=== PATIENT | female | born 1970 | race Asian ===

== ENCOUNTER 2018-11-24 16:10 | Inpatient (IN) | payer MEDICAID, OTHER ==
[~2018-11-24] VITALS: Ht 149.9 cm; Wt 100.7 kg
[~2018-11-24 16:10] MED LIST: ARIP10TA8 PO; HYDR25TA PO; LEVO75TA4 PO; LISI-662 PO; METO25 PO; OXCA600T19 PO; PANT40TA25 PO; POTA10TA14 PO; SIMV-260 PO; TRAZ-186 PO
[2018-11-24] MEDS ORDERED: BUPR-47 PO (17:54)
[2018-11-24] MEDS ORDERED: DULO60CA44 PO (17:54)
[2018-11-24] MEDS ORDERED: CARI4.5C PO (17:54)
[2018-11-24 18:04] LABS: BASOPHILS % (AUTO) 0.5 % (0.0-2.0); HEMATOCRIT 39.5 % (36-46); HEMOGLOBIN 12.6 g/dL (12.0-16.0); LYMPHOCYTES # (AUTO) 2.1 K/uL (1.0-4.8); LYMPHOCYTES % (AUTO) 22.3 % (22.0-44.0); MEAN CORPUSCULAR HEMOGLOBIN 29.1 pg (26.0-34.0); MEAN CORPUSCULAR VOLUME 91 fL (80-100); MONOCYTES # (AUTO) 0.7 K/uL (0.1-1.0); MONOCYTES % (AUTO) 7.8 % (2.0-9.0); NEUTROPHILS # (AUTO) 6.3 K/uL (1.8-7.7); NEUTROPHILS % (AUTO) 66.4 % (40.0-70.0); PLATELET COUNT (AUTO) 189 K/uL (150-450); RED BLOOD CELL COUNT(AUTO) 4.35 MIL/uL (4.00-5.20); RED CELL DISTRIBUTION WIDTH 13.8 % (11.5-14.5)
[2018-11-24 18:16] LABS: ANION GAP 6 mmol/L (8-16); CALCIUM, TOTAL 8.9 mg/dL (8.8-10.5); CARBON DIOXIDE 31 mmol/L (22-29); CHLORIDE 105 mmol/L (98-107); CREATININE 0.78 mg/dL (0.60-1.30); GLOMERULAR FILTR. RATE CALC > 60 mL/min (>60); GLUCOSE,RANDOM 74 mg/dL (70-110); POTASSIUM 3.7 mmol/L (3.5-5.1); SODIUM SERUM 142 mmol/L (136-145); UREA NITROGEN, BLOOD 20 mg/dL (7-18)
[2018-11-24 18:21] LABS: ALANINE AMINOTRANSFERASE 24 U/L (12-78); ALBUMIN 3.8 g/dL (3.4-5.0); ALKALINE PHOSPHATASE 102 U/L (46-116); ASPARTATE AMINOTRANSFERASE 18 U/L (15-37); BILIRUBIN,TOTAL 0.3 mg/dL (0.1-1.0); TOTAL PROTEIN, SERUM 8.7 g/dL (6.4-8.2)
[2018-11-24 19:11] LABS: FREE T4 (FREE THYROXINE) 0.85 ng/dL (0.76-1.46); THYROID STIMULATING HORMONE 5.17 uIU/mL (0.36-3.74)
[2018-11-24 19:17] LABS: AMPHET/METH SCREEN,URINE NEGATIVE (NEGATIVE); BARBITURATE SCREEN, URINE NEGATIVE (NEGATIVE); BENZODIAZEPINES SCREEN,URINE NEGATIVE (NEGATIVE); CANNABINOID SCREEN,URINE NEGATIVE (NEGATIVE); COCAINE SCREEN,URINE NEGATIVE (NEGATIVE); METHADONE SCREEN, URINE NEGATIVE (NEGATIVE); OPIATE SCREEN,URINE NEGATIVE (NEGATIVE)
[2018-11-24 19:23] LABS: PHENCYCLIDINE SCREEN,URINE NEGATIVE (NEGATIVE)
[2018-11-24 22:00] VITALS: BP 142/92
[2018-11-24] MEDS ORDERED: LORazepam 2 MG TABLET PO PRN (23:45)
[2018-11-24] MEDS ORDERED: ZOLPIDEM TARTRATE 10 MG TABLET PO PRN (23:45)
[2018-11-24] MEDS ORDERED: HALOPERIDOL 5 MG TABLET PO PRN (23:45)
[2018-11-25 02:45] VITALS: BP 125/89
[2018-11-25] MEDS: LEVOTHYROXINE SODIUM 75 MCG TABLET PO SCH (06:44)
[2018-11-25] MEDS: METOPROLOL TARTRATE 25 MG TABLET PO SCH (09:14)
[2018-11-25] MEDS ORDERED: NICOTINE 14 MG/24 HOUR PATCH TD PRN (09:30)
[2018-11-25] MEDS ORDERED: ACETAMINOPHEN 325 MG TABLET PO PRN (09:30)
[2018-11-25] MEDS ORDERED: DOCUSATE SODIUM 100 MG CAPSULE PO PRN (09:30)
[2018-11-25] MEDS ORDERED: CloNIDine HCL 0.1 MG TABLET PO PRN (09:30)
[2018-11-25] MEDS ORDERED: ONDANSETRON HCL 4 MG TABLET PO PRN (09:30)
[2018-11-25] MEDS ORDERED: ALBUTEROL SULFATE HFA 90 MCG/PUFF 8 GM INHALER IH PRN (09:30)
[2018-11-25] MEDS ORDERED: GuaiFENesin/D-METHORPHAN [SUGAR-FREE] 200-20MG/10 ML SYRUP UDCUP PO PRN (09:30)
[2018-11-25] MEDS ORDERED: LOPERAMIDE HCL 2 MG CAPSULE PO PRN (09:30)
[2018-11-25] MEDS ORDERED: PETROLATUM,WHITE 28 GM JELLY TP PRN (09:30)
[2018-11-25] MEDS ORDERED: MAG HYDROX/AL HYDROX/SIMETH ES 30 ML SUSPENSION UDCUP PO PRN (09:30)
[2018-11-25] MEDS ORDERED: MAGNESIUM HYDROXIDE SUSPENSION 30 ML UDCUP PO PRN (09:30)
[2018-11-25 10:00] VITALS: BP 139/66
[2018-11-25 10:29] VITALS: BP 136/72
[2018-11-25] MEDS: IBUPROFEN 400 MG TABLET PO PRN (10:29)
[2018-11-25 11:29] VITALS: BP 132/74
[2018-11-25] MEDS: DULoxetine HCL 60 MG CAPSULE PO SCH (16:10)
[2018-11-25 16:12] VITALS: BP 125/52
[2018-11-25] MEDS: SIMVASTATIN 20 MG TABLET PO SCH (20:38)
[2018-11-25] MEDS ORDERED: QUEtiapine FUMARATE 50 MG ER TABLET PO SCH (21:00)
[2018-11-26] MEDS: LEVOTHYROXINE SODIUM 75 MCG TABLET PO SCH (06:54)
[2018-11-26 08:13] LABS: CHOL/HDL RATIO 4.5 (3.9-5.7)
[2018-11-26 09:06] VITALS: BP 138/91
[2018-11-26] MEDS: DULoxetine HCL 60 MG CAPSULE PO SCH ×2 (09:18→17:09)
[2018-11-26] MEDS: METOPROLOL TARTRATE 25 MG TABLET PO SCH (09:19)
[2018-11-26] MEDS: BuPROPion HCL XL 150 MG ER TABLET PO SCH (09:26)
[2018-11-26 19:15] VITALS: BP 140/88
[2018-11-26] MEDS: SIMVASTATIN 20 MG TABLET PO SCH (20:21)
[2018-11-26] MEDS ORDERED: QUEtiapine FUMARATE 50 MG ER TABLET PO SCH (21:00)
[2018-11-27] MEDS: LEVOTHYROXINE SODIUM 75 MCG TABLET PO SCH (06:51)
[2018-11-27 09:41] VITALS: BP 137/82
[2018-11-27] MEDS: METOPROLOL TARTRATE 25 MG TABLET PO SCH (09:47)
[2018-11-27] MEDS: BuPROPion HCL XL 150 MG ER TABLET PO SCH (09:47)
[2018-11-27] MEDS: DULoxetine HCL 60 MG CAPSULE PO SCH ×2 (09:48→16:46)
[2018-11-27 12:31] VITALS: BP 138/85
[2018-11-27] MEDS: IBUPROFEN 400 MG TABLET PO PRN (12:31)
[2018-11-27 17:20] VITALS: BP 135/81
[2018-11-27] MEDS: QUEtiapine FUMARATE 300 MG ER TABLET PO SCH (21:03)
[2018-11-27] MEDS: SIMVASTATIN 20 MG TABLET PO SCH (21:03)
[2018-11-28] MEDS: LEVOTHYROXINE SODIUM 75 MCG TABLET PO SCH (06:53)
[2018-11-28] MEDS: DULoxetine HCL 60 MG CAPSULE PO SCH ×2 (10:07→16:58)
[2018-11-28] MEDS: BuPROPion HCL XL 150 MG ER TABLET PO SCH (10:07)
[2018-11-28] MEDS: METOPROLOL TARTRATE 25 MG TABLET PO SCH (10:07)
[2018-11-28 12:32] VITALS: BP 123/79
[2018-11-28 17:08] VITALS: BP 126/69
[2018-11-28] MEDS: SIMVASTATIN 20 MG TABLET PO SCH (20:36)
[2018-11-28] MEDS: QUEtiapine FUMARATE 300 MG ER TABLET PO SCH (20:36)
[2018-11-29] MEDS: LEVOTHYROXINE SODIUM 75 MCG TABLET PO SCH (06:49)
[2018-11-29] MEDS: METOPROLOL TARTRATE 25 MG TABLET PO SCH (07:45)
[2018-11-29] MEDS: DULoxetine HCL 60 MG CAPSULE PO SCH (07:45)
[2018-11-29] MEDS: BuPROPion HCL XL 150 MG ER TABLET PO SCH (07:45)
[2018-11-29] MEDS: IBUPROFEN 400 MG TABLET PO PRN (07:46)
[2018-11-29 08:46] VITALS: BP 131/90
[2018-11-29 09:11] VITALS: BP 131/90
[2018-11-29] MEDS ORDERED: QUET300T5 PO (10:26)
== END 2018-11-29 14:50 | disposition home or self-care (01) | DRG 751 ==
LOC: EMS 16:12 → 3EI 21:30
PROVIDERS: ADMIT Psychiatry & Neurology Psychiatry; ATTEND Psychiatry & Neurology Psychiatry
DX: F33.3 Major depressive disorder, recurrent, severe with psychotic symptoms (principal); R45.851 Suicidal ideations; Z68.41 Body mass index [BMI] 40.0-44.9, adult; E03.9 Hypothyroidism, unspecified; J45.909 Unspecified asthma, uncomplicated; E66.9 Obesity, unspecified; F60.3 Borderline personality disorder; E78.5 Hyperlipidemia, unspecified; M19.90 Unspecified osteoarthritis, unspecified site; F41.9 Anxiety disorder, unspecified; I10 Essential (primary) hypertension; Z88.8 Allergy status to other drugs, medicaments and biological substances; Z91.5 Personal history of self-harm
CPT/HCPCS: 84439; 84443; 94660; G0480

== ENCOUNTER 2019-06-20 09:28 | Inpatient (IN) | payer MEDICAID ==
[~2019-06-20] VITALS: Ht 149.9 cm; Wt 105.7 kg
[~2019-06-20 09:28] MED LIST changes: -ARIP10TA8 PO; +BUPR-47 PO; +DULO60CA44 PO; -HYDR25TA PO; -LISI-662 PO; -OXCA600T19 PO; -PANT40TA25 PO; -POTA10TA14 PO; +QUET300T5 PO; -TRAZ-186 PO
[2019-06-20] MEDS ORDERED: HALOPERIDOL 5 MG TABLET PO PRN (12:00)
[2019-06-20] MEDS ORDERED: TUBERCULIN, PURIFIED PROTEIN DERIVATIVE 5 TU/0.1 ML SYRINGE ID ONE (12:00)
[2019-06-20 12:31] VITALS: BP 112/64
[2019-06-20 13:00] VITALS: BP 120/72
[2019-06-20 16:27] VITALS: BP 126/77
[2019-06-20] MEDS: ASENAPINE 10 MG SUBLINGUAL TABLET SL SCH (16:29)
[2019-06-20] MEDS: SIMVASTATIN 20 MG TABLET PO SCH (20:15)
[2019-06-20] MEDS: ZOLPIDEM TARTRATE 10 MG TABLET PO PRN (21:01)
[2019-06-21 05:33] VITALS: BP 139/90
[2019-06-21] MEDS: LEVOTHYROXINE SODIUM 75 MCG TABLET PO SCH (06:31)
[2019-06-21 07:57] LABS: BASOPHILS % (AUTO) 0.5 % (0.0-2.0); EOSINOPHILS % (AUTO) 0.6 % (1.0-6.0); HEMATOCRIT 37.9 % (36-46); LYMPHOCYTES # (AUTO) 1.4 K/uL (1.0-4.8); LYMPHOCYTES % (AUTO) 16.3 % (22.0-44.0); MEAN CORPUSCULAR HEMOGLOBIN 26.9 pg (26.0-34.0); MEAN CORPUSCULAR HGB CONC 31.6 G/dL (31.0-37.0); MEAN CORPUSCULAR VOLUME 85 fL (80-100); MONOCYTES # (AUTO) 0.6 K/uL (0.1-1.0); MONOCYTES % (AUTO) 6.7 % (2.0-9.0); NEUTROPHILS # (AUTO) 6.5 K/uL (1.8-7.7); NEUTROPHILS % (AUTO) 75.9 % (40.0-70.0); PLATELET COUNT (AUTO) 202 K/uL (150-450); RED BLOOD CELL COUNT(AUTO) 4.44 MIL/uL (4.00-5.20); RED CELL DISTRIBUTION WIDTH 14.7 % (11.5-14.5)
[2019-06-21 08:05] LABS: ALANINE AMINOTRANSFERASE 34 U/L (12-78); ALBUMIN 3.6 g/dL (3.4-5.0); ALKALINE PHOSPHATASE 79 U/L (46-116); ANION GAP 5 mmol/L (8-16); ASPARTATE AMINOTRANSFERASE 23 U/L (15-37); BILIRUBIN,TOTAL 0.3 mg/dL (0.1-1.0); CALCIUM, TOTAL 9.2 mg/dL (8.8-10.5); CARBON DIOXIDE 35 mmol/L (22-29); CHLORIDE 101 mmol/L (98-107); CREATININE 0.91 mg/dL (0.60-1.30); GLOMERULAR FILTR. RATE CALC > 60 mL/min (>60); GLUCOSE,RANDOM 106 mg/dL (70-110); SODIUM SERUM 141 mmol/L (136-145); TOTAL PROTEIN, SERUM 8.4 g/dL (6.4-8.2); UREA NITROGEN, BLOOD 22 mg/dL (7-18)
[2019-06-21 08:14] LABS: POTASSIUM 2.8 mmol/L (3.5-5.1)
[2019-06-21] MEDS: BuPROPion HCL XL 150 MG ER TABLET PO SCH (08:21)
[2019-06-21] MEDS: ASENAPINE 10 MG SUBLINGUAL TABLET SL SCH ×2 (08:21→16:10)
[2019-06-21] MEDS: METOPROLOL TARTRATE 25 MG TABLET PO SCH (08:21)
[2019-06-21] MEDS ORDERED: POTASSIUM CHLORIDE 20 MEQ ER TABLET PO ONE (08:30)
[2019-06-21 10:37] VITALS: BP 149/84
[2019-06-21] MEDS ORDERED: GuaiFENesin/D-METHORPHAN [SUGAR-FREE] 200-20MG/10 ML SYRUP UDCUP PO PRN (11:30)
[2019-06-21] MEDS ORDERED: NICOTINE 14 MG/24 HOUR PATCH TD PRN (11:30)
[2019-06-21] MEDS ORDERED: CloNIDine HCL 0.1 MG TABLET PO PRN (11:30)
[2019-06-21] MEDS ORDERED: PETROLATUM,WHITE 28 GM JELLY TP PRN (11:30)
[2019-06-21] MEDS ORDERED: ALBUTEROL SULFATE HFA 90 MCG/PUFF 8 GM INHALER IH PRN (11:30)
[2019-06-21] MEDS ORDERED: DOCUSATE SODIUM 100 MG CAPSULE PO PRN (11:30)
[2019-06-21] MEDS ORDERED: LOPERAMIDE HCL 2 MG CAPSULE PO PRN (11:30)
[2019-06-21] MEDS ORDERED: ONDANSETRON HCL 4 MG TABLET PO PRN (11:30)
[2019-06-21] MEDS ORDERED: IBUPROFEN 400 MG TABLET PO PRN (11:30)
[2019-06-21] MEDS ORDERED: MAGNESIUM HYDROXIDE SUSPENSION 30 ML UDCUP PO PRN (11:30)
[2019-06-21] MEDS ORDERED: ACETAMINOPHEN 325 MG TABLET PO PRN (11:30)
[2019-06-21] MEDS ORDERED: MAG HYDROX/AL HYDROX/SIMETH ES 30 ML SUSPENSION UDCUP PO PRN (11:30)
[2019-06-21 16:15] VITALS: BP 155/81
[2019-06-21] MEDS: TraZODone HCL 50 MG TABLET PO SCH (20:10)
[2019-06-21] MEDS: SIMVASTATIN 20 MG TABLET PO SCH (20:10)
[2019-06-21] MEDS: ZOLPIDEM TARTRATE 10 MG TABLET PO PRN (21:56)
[2019-06-21] MEDS: LORazepam 2 MG TABLET PO PRN (23:45)
[2019-06-22 00:01] VITALS: BP 139/63
[2019-06-22] MEDS: LEVOTHYROXINE SODIUM 75 MCG TABLET PO SCH (06:57)
[2019-06-22 08:16] VITALS: BP 119/44
[2019-06-22 08:25] LABS: MAGNESIUM 2.5 mg/dL (1.80-2.40); POTASSIUM 3.9 mmol/L (3.5-5.1)
[2019-06-22] MEDS: BuPROPion HCL XL 150 MG ER TABLET PO SCH (08:28)
[2019-06-22] MEDS: METOPROLOL TARTRATE 25 MG TABLET PO SCH (08:28)
[2019-06-22] MEDS: ASENAPINE 10 MG SUBLINGUAL TABLET SL SCH ×2 (08:28→16:26)
[2019-06-22] MEDS ORDERED: POTASSIUM CHLORIDE 20 MEQ ER TABLET PO ONE (13:45)
[2019-06-22 16:06] VITALS: BP 147/81
[2019-06-22] MEDS: LORazepam 2 MG TABLET PO PRN (19:03)
[2019-06-22] MEDS: SIMVASTATIN 20 MG TABLET PO SCH (20:17)
[2019-06-22] MEDS: TraZODone HCL 50 MG TABLET PO SCH (20:17)
[2019-06-23 01:38] VITALS: BP 135/77
[2019-06-23] MEDS: LEVOTHYROXINE SODIUM 75 MCG TABLET PO SCH (06:26)
[2019-06-23 08:05] LABS: MAGNESIUM 2.3 mg/dL (1.80-2.40); POTASSIUM 3.9 mmol/L (3.5-5.1)
[2019-06-23] MEDS: METOPROLOL TARTRATE 25 MG TABLET PO SCH (08:51)
[2019-06-23] MEDS: BuPROPion HCL XL 150 MG ER TABLET PO SCH (08:51)
[2019-06-23] MEDS: ASENAPINE 10 MG SUBLINGUAL TABLET SL SCH (08:52)
[2019-06-23 09:29] VITALS: BP 152/84
[2019-06-23] MEDS ORDERED: TRAZ-252 PO (11:42)
[2019-06-23] MEDS ORDERED: ASEN10TA8 SL (11:42)
[2019-06-23] MEDS ORDERED: BUPR-47 PO (11:42)
== END 2019-06-23 15:00 | disposition home or self-care (01) | DRG 753 ==
LOC: B2S 10:20
PROVIDERS: ADMIT Psychiatry & Neurology Child & Adolescent Psychiatry
DX: F31.4 Bipolar disorder, current episode depressed, severe, without psychotic features (principal); R45.851 Suicidal ideations; G40.909 Epilepsy, unspecified, not intractable, without status epilepticus; E03.9 Hypothyroidism, unspecified; E78.5 Hyperlipidemia, unspecified; E87.6 Hypokalemia; F10.10 Alcohol abuse, uncomplicated; R00.0 Tachycardia, unspecified; I10 Essential (primary) hypertension; J45.909 Unspecified asthma, uncomplicated; Z79.899 Other long term (current) drug therapy; Z81.8 Family history of other mental and behavioral disorders; Z91.5 Personal history of self-harm; Z88.8 Allergy status to other drugs, medicaments and biological substances
CPT/HCPCS: 83735; 84132

== ENCOUNTER 2019-07-04 09:10 | Inpatient (IN) | payer MEDICAID ==
[~2019-07-04] VITALS: Ht 149.9 cm; Wt 99.0 kg
[~2019-07-04 09:10] MED LIST changes: +ASEN10TA8 SL; -DULO60CA44 PO; -QUET300T5 PO; +TRAZ-252 PO
[2019-07-04 13:43] VITALS: BP 152/93
[2019-07-04] MEDS ORDERED: ZOLPIDEM TARTRATE 10 MG TABLET PO PRN (16:00)
[2019-07-04] MEDS ORDERED: HALOPERIDOL 5 MG TABLET PO PRN (16:00)
[2019-07-04] MEDS ORDERED: LORazepam 2 MG TABLET PO PRN (16:00)
[2019-07-04 17:07] VITALS: BP 147/79
[2019-07-04] MEDS ORDERED: SIMVASTATIN 20 MG TABLET PO SCH (21:00)
[2019-07-04] MEDS ORDERED: TraZODone HCL 50 MG TABLET PO SCH (21:00)
[2019-07-04] MEDS: ASENAPINE 10 MG SUBLINGUAL TABLET SL SCH (21:07)
[2019-07-05] MEDS ORDERED: LEVOTHYROXINE SODIUM 75 MCG TABLET PO SCH (06:30)
[2019-07-05 08:00] VITALS: BP 153/97
[2019-07-05] MEDS ORDERED: ACETAMINOPHEN 650 MG RECTAL SUPPOSITORY PR PRN (08:00)
[2019-07-05] MEDS ORDERED: LOPERAMIDE HCL 2 MG CAPSULE PO PRN (08:30)
[2019-07-05] MEDS ORDERED: MAG HYDROX/AL HYDROX/SIMETH ES 30 ML SUSPENSION UDCUP PO PRN (08:30)
[2019-07-05] MEDS ORDERED: ONDANSETRON HCL 4 MG TABLET PO PRN (08:30)
[2019-07-05] MEDS ORDERED: MAGNESIUM HYDROXIDE SUSPENSION 30 ML UDCUP PO PRN (08:30)
[2019-07-05] MEDS ORDERED: CloNIDine HCL 0.1 MG TABLET PO PRN (08:30)
[2019-07-05] MEDS ORDERED: ALBUTEROL SULFATE HFA 90 MCG/PUFF 8 GM INHALER IH PRN (08:30)
[2019-07-05] MEDS ORDERED: GuaiFENesin/D-METHORPHAN [SUGAR-FREE] 200-20MG/10 ML SYRUP UDCUP PO PRN (08:30)
[2019-07-05] MEDS ORDERED: NICOTINE 14 MG/24 HOUR PATCH TD PRN (08:30)
[2019-07-05] MEDS ORDERED: IBUPROFEN 400 MG TABLET PO PRN (08:30)
[2019-07-05] MEDS ORDERED: ACETAMINOPHEN 325 MG TABLET PO PRN ×2 (08:30)
[2019-07-05] MEDS ORDERED: PETROLATUM,WHITE 28 GM JELLY TP PRN (08:30)
[2019-07-05] MEDS ORDERED: DOCUSATE SODIUM 100 MG CAPSULE PO PRN (08:30)
[2019-07-05] MEDS: ASENAPINE 10 MG SUBLINGUAL TABLET SL SCH (08:54)
[2019-07-05] MEDS ORDERED: METOPROLOL TARTRATE 25 MG TABLET PO SCH (09:00)
[2019-07-05] MEDS ORDERED: BuPROPion HCL XL 150 MG ER TABLET PO SCH ×2 (09:00→09:15)
[2019-07-05] MEDS ORDERED: ASENAPINE 10 MG SUBLINGUAL TABLET SL SCH (09:15)
[2019-07-05 11:15] LABS: BASOPHILS % (AUTO) 0.4 % (0.0-2.0); EOSINOPHILS % (AUTO) 0.1 % (1.0-6.0); HEMATOCRIT 42.2 % (36-46); HEMOGLOBIN 13.1 g/dL (12.0-16.0); LYMPHOCYTES # (AUTO) 1.2 K/uL (1.0-4.8); LYMPHOCYTES % (AUTO) 11.9 % (22.0-44.0); MEAN CORPUSCULAR HEMOGLOBIN 26.6 pg (26.0-34.0); MEAN CORPUSCULAR HGB CONC 31.1 G/dL (31.0-37.0); MEAN CORPUSCULAR VOLUME 85 fL (80-100); MONOCYTES # (AUTO) 0.7 K/uL (0.1-1.0); NEUTROPHILS # (AUTO) 8.3 K/uL (1.8-7.7); NEUTROPHILS % (AUTO) 80.6 % (40.0-70.0); PLATELET COUNT (AUTO) 246 K/uL (150-450); RED BLOOD CELL COUNT(AUTO) 4.94 MIL/uL (4.00-5.20); RED CELL DISTRIBUTION WIDTH 15.7 % (11.5-14.5)
[2019-07-05 11:34] LABS: ANION GAP 8 mmol/L (8-16); CALCIUM, TOTAL 9.6 mg/dL (8.8-10.5); CARBON DIOXIDE 33 mmol/L (22-29); CHLORIDE 101 mmol/L (98-107); CREATININE 1.09 mg/dL (0.60-1.30); GLOMERULAR FILTR. RATE CALC 53 mL/min (>60); GLUCOSE,RANDOM 101 mg/dL (70-110); POTASSIUM 3.5 mmol/L (3.5-5.1); SODIUM SERUM 142 mmol/L (136-145); UREA NITROGEN, BLOOD 20 mg/dL (7-18)
[2019-07-05 11:35] LABS: D-DIMER 0.22 mg/L FEU (0.00-0.50)
[2019-07-05 11:46] LABS: LACTIC ACID 2.4 mmol/L (0.4-2.0)
[2019-07-05 11:48] LABS: ALANINE AMINOTRANSFERASE 32 U/L (12-78); ALBUMIN 3.8 g/dL (3.4-5.0); ALKALINE PHOSPHATASE 78 U/L (46-116); ASPARTATE AMINOTRANSFERASE 19 U/L (15-37); BILIRUBIN,TOTAL 0.5 mg/dL (0.1-1.0); C-REACTIVE PROTEIN QUANT 0.13 mg/dL (0.00-0.30); FERRITIN 34 ng/mL (8-252); TOTAL PROTEIN, SERUM 8.7 g/dL (6.4-8.2)
[2019-07-05 12:15] LABS: LACTATE DEHYDROGENASE 164 U/L (81-234)
[2019-07-05] MEDS ORDERED: TraZODone HCL 50 MG TABLET PO SCH (21:00)
== END 2019-07-05 09:30 | disposition short-term general hospital (02) | DRG 885 ==
LOC: 3EI 13:30
DX: F31.4 Bipolar disorder, current episode depressed, severe, without psychotic features (principal); E03.9 Hypothyroidism, unspecified; I10 Essential (primary) hypertension; Z81.8 Family history of other mental and behavioral disorders; E78.5 Hyperlipidemia, unspecified; Z03.818 Encounter for observation for suspected exposure to other biological agents ruled out; J45.909 Unspecified asthma, uncomplicated
CPT/HCPCS: 82728; 83605; 83615; 84145; 85379; 85384; 86140; 87081; 94660

== ENCOUNTER 2019-07-05 10:30 | Inpatient (IN) | payer OTHER ==
[2019-07-05 10:48] VITALS: BP 145/85
[2019-07-05] MEDS ORDERED: ACETAMINOPHEN 325 MG TABLET PO ONE (11:00)
[2019-07-05 12:00] VITALS: BP_SYST 114; BP_SYST 145; BP_DIAS 145; BP_DIAS 85
[2019-07-05] MEDS ORDERED: 0.9% SODIUM CHLORIDE 10 ML SYRINGE IVP PRN (12:00)
[2019-07-05] MEDS ORDERED: MAGNESIUM HYDROXIDE SUSPENSION 30 ML UDCUP PO PRN (12:00)
[2019-07-05] MEDS ORDERED: ACETAMINOPHEN 325 MG TABLET PO PRN (12:00)
[2019-07-05] MEDS ORDERED: ONDANSETRON HCL 4 MG/2 ML VIAL IVP PRN (12:00)
[2019-07-05] MEDS ORDERED: BISACODYL 10 MG RECTAL RECTAL SUPPOSITORY PR PRN (12:00)
[2019-07-05] MEDS ORDERED: DOCUSATE SODIUM 100 MG CAPSULE PO PRN (12:00)
[2019-07-05] MEDS ORDERED: ALBUTEROL SULFATE/IPRATROPIUM 100-20 MCG/SPRAY 4 GM INHALER IH PRN (12:00)
[2019-07-05] MEDS: ALPRAZolam 0.25 MG TABLET PO PRN (12:26)
[2019-07-05 14:30] VITALS: BP 147/84
[2019-07-05] MEDS: SODIUM CHLORIDE 0.9% 1,000 ML IV SCH (14:41)
[2019-07-05 17:58] LABS: APPEARANCE,URINE CLOUDY (CLEAR); BILIRUBIN,URINE NEGATIVE (NEGATIVE); GLUCOSE, URINE (UA) NEGATIVE (NEGATIVE); KETONES,URINE TRACE mg/dL (NEGATIVE); LEUKOCYTE ESTERASE ,URINE LARGE (NEGATIVE); NITRATE,URINE NEGATIVE (NEGATIVE); OCCULT BLOOD,URINE NEGATIVE (NEGATIVE); PROTEIN,URINE TRACE (NEGATIVE)
[2019-07-05 18:11] LABS: BACTERIA,URINE Many /HPF (None Seen); RBC,URINE None Seen /HPF (0-2); SQUAMOUS EPITHELIAL CELL,UR Many /LPF (None Seen)
[2019-07-05] MEDS ORDERED: CefTRIAXone 1 GM/DEXTROSE 50 ML IV SCH (19:00)
[2019-07-05 20:02] VITALS: BP 147/73
[2019-07-06] VITALS: BP 122/63
[2019-07-06] MEDS: SODIUM CHLORIDE 0.9% 1,000 ML IV SCH ×2 (00:42→11:32)
[2019-07-06] MEDS: ALPRAZolam 0.25 MG TABLET PO PRN (01:05)
[2019-07-06 04:49] VITALS: BP 137/72
[2019-07-06 07:38] LABS: GLUCOMETER DEV NAME(LOC) 5S.1; GLUCOSE,POINT OF CARE 108 MG/DL (70-110)
[2019-07-06 07:46] LABS: BASOPHILS % (AUTO) 0.5 % (0.0-2.0); EOSINOPHILS % (AUTO) 0.9 % (1.0-6.0); HEMATOCRIT 35.1 % (36-46); HEMOGLOBIN 11.4 g/dL (12.0-16.0); LYMPHOCYTES # (AUTO) 1.3 K/uL (1.0-4.8); LYMPHOCYTES % (AUTO) 17.8 % (22.0-44.0); MEAN CORPUSCULAR HEMOGLOBIN 27.5 pg (26.0-34.0); MEAN CORPUSCULAR HGB CONC 32.5 G/dL (31.0-37.0); MEAN CORPUSCULAR VOLUME 85 fL (80-100); MONOCYTES # (AUTO) 0.5 K/uL (0.1-1.0); NEUTROPHILS # (AUTO) 5.5 K/uL (1.8-7.7); NEUTROPHILS % (AUTO) 73.8 % (40.0-70.0); PLATELET COUNT (AUTO) 187 K/uL (150-450); RED BLOOD CELL COUNT(AUTO) 4.14 MIL/uL (4.00-5.20); RED CELL DISTRIBUTION WIDTH 15.9 % (11.5-14.5)
[2019-07-06] MEDS ORDERED: SIMVASTATIN 20 MG TABLET PO SCH (08:00)
[2019-07-06] MEDS ORDERED: TraZODone HCL 50 MG TABLET PO SCH (08:00)
[2019-07-06 08:13] VITALS: BP 139/91
[2019-07-06 08:13] LABS: ALANINE AMINOTRANSFERASE 26 U/L (12-78); ALBUMIN 3.2 g/dL (3.4-5.0); ALKALINE PHOSPHATASE 62 U/L (46-116); ANION GAP 7 mmol/L (8-16); ASPARTATE AMINOTRANSFERASE 19 U/L (15-37); BILIRUBIN,TOTAL 0.4 mg/dL (0.1-1.0); CALCIUM, TOTAL 8.7 mg/dL (8.8-10.5); CARBON DIOXIDE 31 mmol/L (22-29); CHLORIDE 105 mmol/L (98-107); CREATININE 0.85 mg/dL (0.60-1.30); GLOMERULAR FILTR. RATE CALC > 60 mL/min (>60); GLUCOSE,RANDOM 93 mg/dL (70-110); POTASSIUM 3.4 mmol/L (3.5-5.1); SODIUM SERUM 143 mmol/L (136-145); TOTAL PROTEIN, SERUM 7.2 g/dL (6.4-8.2); UREA NITROGEN, BLOOD 14 mg/dL (7-18)
[2019-07-06] MEDS: METOPROLOL TARTRATE 25 MG TABLET PO SCH ×2 (09:00→10:02)
[2019-07-06] MEDS: BuPROPion HCL XL 150 MG ER TABLET PO SCH ×2 (09:00→10:02)
[2019-07-06] MEDS: ASENAPINE 10 MG SUBLINGUAL TABLET SL SCH ×3 (09:00→20:49)
[2019-07-06] MEDS: LEVOTHYROXINE SODIUM 75 MCG TABLET PO SCH (10:02)
[2019-07-06] MEDS: PANTOPRAZOLE SODIUM 40 MG DR TABLET PO SCH (10:03)
[2019-07-06] MEDS ORDERED: LEVOTHYROXINE SODIUM 75 MCG TABLET PO SCH (11:00)
[2019-07-06 11:36] VITALS: BP 129/58
[2019-07-06] MEDS ORDERED: POTASSIUM CHLORIDE 20 MEQ ER TABLET PO PRN (13:15)
[2019-07-06 15:56] VITALS: BP 132/71
[2019-07-06 20:27] VITALS: BP 140/89
[2019-07-06] MEDS: SIMVASTATIN 20 MG TABLET PO SCH (20:48)
[2019-07-06] MEDS: TraZODone HCL 50 MG TABLET PO SCH (20:48)
[2019-07-07 00:40] VITALS: BP 120/87
[2019-07-07] MEDS: LEVOTHYROXINE SODIUM 75 MCG TABLET PO SCH (06:25)
[2019-07-07] MEDS: METOPROLOL TARTRATE 25 MG TABLET PO SCH (09:10)
[2019-07-07] MEDS: ASENAPINE 10 MG SUBLINGUAL TABLET SL SCH ×2 (09:10→20:45)
[2019-07-07] MEDS: BuPROPion HCL XL 150 MG ER TABLET PO SCH (09:10)
[2019-07-07] MEDS: PANTOPRAZOLE SODIUM 40 MG DR TABLET PO SCH (09:10)
[2019-07-07 09:16] VITALS: BP 163/95
[2019-07-07 11:34] VITALS: BP 153/78
[2019-07-07 12:17] LABS: BASOPHILS % (AUTO) 0.6 % (0.0-2.0); EOSINOPHILS % (AUTO) 0.6 % (1.0-6.0); HEMATOCRIT 40.7 % (36-46); HEMOGLOBIN 12.7 g/dL (12.0-16.0); LYMPHOCYTES # (AUTO) 1.5 K/uL (1.0-4.8); LYMPHOCYTES % (AUTO) 14.4 % (22.0-44.0); MEAN CORPUSCULAR HEMOGLOBIN 26.6 pg (26.0-34.0); MEAN CORPUSCULAR HGB CONC 31.2 G/dL (31.0-37.0); MEAN CORPUSCULAR VOLUME 85 fL (80-100); MONOCYTES # (AUTO) 0.8 K/uL (0.1-1.0); MONOCYTES % (AUTO) 7.5 % (2.0-9.0); NEUTROPHILS # (AUTO) 7.9 K/uL (1.8-7.7); NEUTROPHILS % (AUTO) 76.9 % (40.0-70.0); PLATELET COUNT (AUTO) 232 K/uL (150-450); RED BLOOD CELL COUNT(AUTO) 4.77 MIL/uL (4.00-5.20); RED CELL DISTRIBUTION WIDTH 15.9 % (11.5-14.5)
[2019-07-07 13:16] LABS: ANION GAP 9 mmol/L (8-16); CALCIUM, TOTAL 9.2 mg/dL (8.8-10.5); CARBON DIOXIDE 29 mmol/L (22-29); CHLORIDE 104 mmol/L (98-107); CREATININE 0.91 mg/dL (0.60-1.30); GLOMERULAR FILTR. RATE CALC > 60 mL/min (>60); GLUCOSE,RANDOM 103 mg/dL (70-110); POTASSIUM 3.6 mmol/L (3.5-5.1); SODIUM SERUM 142 mmol/L (136-145); UREA NITROGEN, BLOOD 12 mg/dL (7-18)
[2019-07-07 18:29] VITALS: BP 135/79
[2019-07-07 20:39] VITALS: BP 140/78
[2019-07-07] MEDS: TraZODone HCL 50 MG TABLET PO SCH (20:45)
[2019-07-07] MEDS: SIMVASTATIN 20 MG TABLET PO SCH (20:45)
[2019-07-07 23:42] VITALS: BP 136/64
[2019-07-08] VITALS (7 sets, daily range): BP systolic 133–159; BP diastolic 64–100
[2019-07-08] MEDS: LEVOTHYROXINE SODIUM 75 MCG TABLET PO SCH (06:16)
[2019-07-08] MEDS: BuPROPion HCL XL 150 MG ER TABLET PO SCH (08:14)
[2019-07-08] MEDS: METOPROLOL TARTRATE 25 MG TABLET PO SCH (08:14)
[2019-07-08] MEDS: PANTOPRAZOLE SODIUM 40 MG DR TABLET PO SCH (08:14)
[2019-07-08] MEDS: ASENAPINE 10 MG SUBLINGUAL TABLET SL SCH ×2 (08:51→21:38)
[2019-07-08] MEDS: TraZODone HCL 50 MG TABLET PO SCH (21:17)
[2019-07-08] MEDS: SIMVASTATIN 20 MG TABLET PO SCH (21:17)
[2019-07-09] MEDS: ALPRAZolam 0.25 MG TABLET PO PRN ×4 (00:37→22:57)
[2019-07-09 06:00] VITALS: BP 155/80
[2019-07-09] MEDS: LEVOTHYROXINE SODIUM 75 MCG TABLET PO SCH (06:15)
[2019-07-09 07:37] VITALS: BP 148/78
[2019-07-09] MEDS: PANTOPRAZOLE SODIUM 40 MG DR TABLET PO SCH (08:46)
[2019-07-09] MEDS: METOPROLOL TARTRATE 25 MG TABLET PO SCH (08:46)
[2019-07-09] MEDS: ASENAPINE 10 MG SUBLINGUAL TABLET SL SCH ×2 (08:49→20:54)
[2019-07-09] MEDS: BuPROPion HCL XL 150 MG ER TABLET PO SCH (08:50)
[2019-07-09 09:26] LABS: BASOPHILS % (AUTO) 0.8 % (0.0-2.0); EOSINOPHILS % (AUTO) 0.5 % (1.0-6.0); HEMATOCRIT 40.1 % (36-46); HEMOGLOBIN 12.5 g/dL (12.0-16.0); LYMPHOCYTES # (AUTO) 1.5 K/uL (1.0-4.8); LYMPHOCYTES % (AUTO) 12.1 % (22.0-44.0); MEAN CORPUSCULAR HEMOGLOBIN 26.8 pg (26.0-34.0); MEAN CORPUSCULAR HGB CONC 31.3 G/dL (31.0-37.0); MEAN CORPUSCULAR VOLUME 86 fL (80-100); MONOCYTES # (AUTO) 0.6 K/uL (0.1-1.0); MONOCYTES % (AUTO) 5.1 % (2.0-9.0); NEUTROPHILS % (AUTO) 81.5 % (40.0-70.0); PLATELET COUNT (AUTO) 206 K/uL (150-450); RED BLOOD CELL COUNT(AUTO) 4.68 MIL/uL (4.00-5.20); RED CELL DISTRIBUTION WIDTH 15.9 % (11.5-14.5)
[2019-07-09 09:34] LABS: CALCIUM, TOTAL 9.7 mg/dL (8.8-10.5); CREATININE 1.1 mg/dL (0.60-1.30)
[2019-07-09 11:13] VITALS: BP 129/80
[2019-07-09 15:08] VITALS: BP 134/74
[2019-07-09 19:41] VITALS: BP 107/68
[2019-07-09] MEDS: TraZODone HCL 50 MG TABLET PO SCH (20:54)
[2019-07-09] MEDS: SIMVASTATIN 20 MG TABLET PO SCH (20:54)
[2019-07-10] VITALS (7 sets, daily range): BP systolic 122–145; BP diastolic 59–93
[2019-07-10] MEDS: LEVOTHYROXINE SODIUM 75 MCG TABLET PO SCH (06:28)
[2019-07-10] MEDS: BuPROPion HCL XL 150 MG ER TABLET PO SCH (08:46)
[2019-07-10] MEDS: ALPRAZolam 0.25 MG TABLET PO PRN (08:47)
[2019-07-10] MEDS: PANTOPRAZOLE SODIUM 40 MG DR TABLET PO SCH (08:47)
[2019-07-10] MEDS: METOPROLOL TARTRATE 25 MG TABLET PO SCH (08:47)
[2019-07-10] MEDS: ASENAPINE 10 MG SUBLINGUAL TABLET SL SCH ×2 (08:48→20:08)
[2019-07-10] MEDS: SIMVASTATIN 20 MG TABLET PO SCH (20:08)
[2019-07-10] MEDS: TraZODone HCL 50 MG TABLET PO SCH (20:08)
[2019-07-11] MEDS: ALPRAZolam 0.25 MG TABLET PO PRN ×2 (01:48→08:58)
[2019-07-11 04:15] VITALS: BP 144/86
[2019-07-11] MEDS: LEVOTHYROXINE SODIUM 75 MCG TABLET PO SCH (06:32)
[2019-07-11 08:07] VITALS: BP 143/78
[2019-07-11] MEDS: BuPROPion HCL XL 150 MG ER TABLET PO SCH (08:58)
[2019-07-11] MEDS: ASENAPINE 10 MG SUBLINGUAL TABLET SL SCH (08:59)
[2019-07-11] MEDS: METOPROLOL TARTRATE 25 MG TABLET PO SCH (08:59)
[2019-07-11] MEDS: PANTOPRAZOLE SODIUM 40 MG DR TABLET PO SCH (08:59)
[2019-07-11 12:00] VITALS: BP 153/81
[2019-07-11 16:18] VITALS: BP 149/83
== END 2019-07-11 20:15 | disposition home or self-care (01) | DRG 463 ==
LOC: 5N 10:30 → 5S 07-07 18:35 → 6N 07-08 15:51 → 6S 07-10 22:34 → 6N 07-11 17:10
PROVIDERS: ADMIT Internal Medicine; ATTEND Internal Medicine
DX: N39.0 Urinary tract infection, site not specified (principal); E87.2 Acidosis; R65.10 Systemic inflammatory response syndrome (SIRS) of non-infectious origin without acute organ dysfunction; E44.0 Moderate protein-calorie malnutrition; E66.01 Morbid (severe) obesity due to excess calories; F20.9 Schizophrenia, unspecified; Z20.828 Contact with and (suspected) exposure to other viral communicable diseases; I10 Essential (primary) hypertension; E03.9 Hypothyroidism, unspecified; F31.4 Bipolar disorder, current episode depressed, severe, without psychotic features; Z88.8 Allergy status to other drugs, medicaments and biological substances; Z90.49 Acquired absence of other specified parts of digestive tract; Z79.899 Other long term (current) drug therapy
CPT/HCPCS: 83605; 84132; 84145; 87040; 87081; 87086; 87635; 93306; J0696; J7030

== ENCOUNTER 2020-06-03 09:28 | Inpatient (IN) | payer MEDICAID, OTHER ==
[~2020-06-03] VITALS: Ht 149.9 cm; Wt 93.3 kg
[~2020-06-03 09:28] MED LIST changes: +ASEN10TA10 SL; -ASEN10TA8 SL; -BUPR-47 PO; +BUPR-49 PO
[2020-06-03 10:32] LABS: COVID AG,FIA SOURCE NASOPHARYNGEAL
[2020-06-03 11:10] LABS: BASOPHILS % (AUTO) 0.6 % (0.0-2.0); EOSINOPHILS % (AUTO) 2.4 % (1.0-6.0); HEMATOCRIT 39.3 % (36-46); HEMOGLOBIN 12.6 g/dL (12.0-16.0); LYMPHOCYTES # (AUTO) 1.3 K/uL (1.0-4.8); LYMPHOCYTES % (AUTO) 21.9 % (22.0-44.0); MEAN CORPUSCULAR HEMOGLOBIN 27.5 pg (26.0-34.0); MEAN CORPUSCULAR HGB CONC 32.1 G/dL (31.0-37.0); MEAN CORPUSCULAR VOLUME 86 fL (80-100); MONOCYTES # (AUTO) 0.5 K/uL (0.1-1.0); MONOCYTES % (AUTO) 9.1 % (2.0-9.0); NEUTROPHILS # (AUTO) 3.8 K/uL (1.8-7.7); PLATELET COUNT (AUTO) 134 K/uL (150-450); RED BLOOD CELL COUNT(AUTO) 4.59 MIL/uL (4.00-5.20); RED CELL DISTRIBUTION WIDTH 14.9 % (11.5-14.5)
[2020-06-03 11:22] LABS: ANION GAP 7 mmol/L (8-16); CALCIUM, TOTAL 9.2 mg/dL (8.8-10.5); CARBON DIOXIDE 31 mmol/L (22-29); CHLORIDE 106 mmol/L (98-107); CREATININE 0.79 mg/dL (0.60-1.30); GLOMERULAR FILTR. RATE CALC > 60 mL/min (>60); GLUCOSE,RANDOM 92 mg/dL (70-110); POTASSIUM 3.6 mmol/L (3.5-5.1); SODIUM SERUM 144 mmol/L (136-145); UREA NITROGEN, BLOOD 22 mg/dL (7-18)
[2020-06-03 11:24] LABS: SALICYLATE 1.4 mg/dL (2.8-20.0)
[2020-06-03 11:35] LABS: ALANINE AMINOTRANSFERASE 39 U/L (12-78); ALBUMIN 3.5 g/dL (3.4-5.0); ALKALINE PHOSPHATASE 104 U/L (46-116); ASPARTATE AMINOTRANSFERASE 28 U/L (15-37); BILIRUBIN,TOTAL 0.2 mg/dL (0.1-1.0); HCG,QUANTITATIVE 1 mIU/mL (0-6); TOTAL PROTEIN, SERUM 8.4 g/dL (6.4-8.2)
[2020-06-03 11:36] LABS: ACETAMINOPHEN < 2 mcg/mL (10-30)
[2020-06-03 12:07] LABS: AMPHET/METH SCREEN,URINE NEGATIVE (NEGATIVE); BARBITURATE SCREEN, URINE NEGATIVE (NEGATIVE); BENZODIAZEPINES SCREEN,URINE NEGATIVE (NEGATIVE); CANNABINOID SCREEN,URINE NEGATIVE (NEGATIVE); COCAINE SCREEN,URINE NEGATIVE (NEGATIVE); METHADONE SCREEN, URINE NEGATIVE (NEGATIVE); OPIATE SCREEN,URINE NEGATIVE (NEGATIVE)
[2020-06-03 12:09] LABS: PHENCYCLIDINE SCREEN,URINE NEGATIVE (NEGATIVE)
[2020-06-03] MEDS ORDERED: ZOLPIDEM TARTRATE 10 MG TABLET PO PRN (18:00)
[2020-06-03] MEDS ORDERED: TUBERCULIN, PURIFIED PROTEIN DERIVATIVE 5 TU/0.1 ML SYRINGE ID ONE (18:00)
[2020-06-03] MEDS ORDERED: LURASIDONE HCL 20 MG TABLET PO PRN (18:00)
[2020-06-03] MEDS ORDERED: MAG HYDROX/AL HYDROX/SIMETH ES 30 ML SUSPENSION UDCUP PO PRN (18:00)
[2020-06-03] MEDS ORDERED: HydrOXYzine PAMOATE 50 MG CAPSULE PO PRN (18:00)
[2020-06-03] MEDS ORDERED: PROMETHAZINE HCL 25 MG TABLET PO PRN (18:00)
[2020-06-03] MEDS ORDERED: LOPERAMIDE HCL 2 MG CAPSULE PO PRN (18:00)
[2020-06-03] MEDS ORDERED: GuaiFENesin/D-METHORPHAN [SUGAR-FREE] 200-20MG/10 ML SYRUP UDCUP PO PRN (18:00)
[2020-06-03] MEDS ORDERED: MAGNESIUM HYDROXIDE SUSPENSION 30 ML UDCUP PO PRN (18:00)
[2020-06-03] MEDS: THIAMINE 100 MG TABLET PO SCH (18:51)
[2020-06-03] MEDS: TraZODone HCL 50 MG TABLET PO SCH (21:00)
[2020-06-03] MEDS: MELATONIN 5 MG TABLET PO SCH (21:00)
[2020-06-04 03:07] VITALS: BP 125/94
[2020-06-04] MEDS ORDERED: LURASIDONE HCL 40 MG TABLET PO SCH (07:00)
[2020-06-04 07:47] LABS: HEMOGLOBIN A1C 5.8 % (3.8-5.6)
[2020-06-04 08:26] VITALS: BP 115/71
[2020-06-04] MEDS: FOLIC ACID 1 MG TABLET PO SCH (08:40)
[2020-06-04] MEDS: MULTIVITAMINS WITH MINERALS, THERAPEUTIC TABLET PO SCH (08:40)
[2020-06-04] MEDS: THIAMINE 100 MG TABLET PO SCH ×2 (08:40→16:40)
[2020-06-04 08:55] LABS: CHOL/HDL RATIO 2.4 (3.9-5.7); THYROID STIMULATING HORMONE 0.87 uIU/mL (0.36-3.74)
[2020-06-04] MEDS ORDERED: BuPROPion HCL XL 150 MG ER TABLET PO SCH (09:00)
[2020-06-04] MEDS: OMEGA-3/DHA/EPA/FISH OIL 1,000 MG CAPSULE PO SCH (09:09)
[2020-06-04 09:12] LABS: FREE T4 (FREE THYROXINE) 0.93 ng/dL (0.76-1.46)
[2020-06-04 17:09] VITALS: BP 119/67
[2020-06-04] MEDS: LORazepam 2 MG TABLET PO PRN (17:58)
[2020-06-04] MEDS: MELATONIN 5 MG TABLET PO SCH (20:12)
[2020-06-04] MEDS: TraZODone HCL 50 MG TABLET PO SCH (20:12)
[2020-06-04] MEDS ORDERED: DIVALPROEX SODIUM 500 MG ER TABLET PO ONE (20:45)
[2020-06-04] MEDS: CloZAPine 100 MG TABLET PO SCH (21:11)
[2020-06-05 04:54] VITALS: BP 117/71
[2020-06-05] MEDS ORDERED: LURASIDONE HCL 20 MG TABLET PO SCH (07:00)
[2020-06-05] MEDS: THIAMINE 100 MG TABLET PO SCH ×2 (08:24→16:35)
[2020-06-05] MEDS: DIVALPROEX SODIUM 500 MG ER TABLET PO SCH ×3 (08:24→16:35)
[2020-06-05] MEDS: OMEGA-3/DHA/EPA/FISH OIL 1,000 MG CAPSULE PO SCH (08:24)
[2020-06-05] MEDS: FOLIC ACID 1 MG TABLET PO SCH (08:24)
[2020-06-05] MEDS: MULTIVITAMINS WITH MINERALS, THERAPEUTIC TABLET PO SCH (08:25)
[2020-06-05 08:36] VITALS: BP 124/91
[2020-06-05] MEDS: LORazepam 2 MG TABLET PO PRN (13:51)
[2020-06-05 16:31] VITALS: BP 118/71
[2020-06-05] MEDS: MELATONIN 5 MG TABLET PO SCH (20:19)
[2020-06-05] MEDS: CloZAPine 100 MG TABLET PO SCH (20:19)
[2020-06-06 06:56] VITALS: BP 139/83
[2020-06-06 08:19] VITALS: BP 121/79
[2020-06-06] MEDS: FOLIC ACID 1 MG TABLET PO SCH (08:53)
[2020-06-06] MEDS: OMEGA-3/DHA/EPA/FISH OIL 1,000 MG CAPSULE PO SCH (08:53)
[2020-06-06] MEDS: MULTIVITAMINS WITH MINERALS, THERAPEUTIC TABLET PO SCH (08:53)
[2020-06-06] MEDS: THIAMINE 100 MG TABLET PO SCH ×2 (08:53→16:06)
[2020-06-06] MEDS: DIVALPROEX SODIUM 500 MG ER TABLET PO SCH ×3 (09:18→16:06)
[2020-06-06] MEDS: LORazepam 2 MG TABLET PO PRN (11:51)
[2020-06-06] MEDS ORDERED: OMEG-135 PO (15:06)
[2020-06-06] MEDS ORDERED: DIVA-80 PO (15:06)
[2020-06-06] MEDS ORDERED: MELA5TAB3 PO (15:06)
[2020-06-06] MEDS ORDERED: CLOZ100T31 PO (15:06)
[2020-06-06 16:56] VITALS: BP 115/73
[2020-06-06] MEDS: CloZAPine 100 MG TABLET PO SCH (20:58)
[2020-06-06] MEDS: MELATONIN 5 MG TABLET PO SCH (20:58)
[2020-06-07 06:08] VITALS: BP 126/88
[2020-06-07 07:59] LABS: BASOPHILS % (AUTO) 0.6 % (0.0-2.0); EOSINOPHILS % (AUTO) 1.7 % (1.0-6.0); HEMATOCRIT 36.9 % (36-46); HEMOGLOBIN 11.9 g/dL (12.0-16.0); LYMPHOCYTES # (AUTO) 1.4 K/uL (1.0-4.8); LYMPHOCYTES % (AUTO) 12.9 % (22.0-44.0); MEAN CORPUSCULAR HEMOGLOBIN 27.7 pg (26.0-34.0); MEAN CORPUSCULAR HGB CONC 32.2 G/dL (31.0-37.0); MEAN CORPUSCULAR VOLUME 86 fL (80-100); MONOCYTES # (AUTO) 0.6 K/uL (0.1-1.0); NEUTROPHILS # (AUTO) 8.5 K/uL (1.8-7.7); NEUTROPHILS % (AUTO) 78.8 % (40.0-70.0); PLATELET COUNT (AUTO) 152 K/uL (150-450); RED CELL DISTRIBUTION WIDTH 14.8 % (11.5-14.5)
[2020-06-07] MEDS: THIAMINE 100 MG TABLET PO SCH ×2 (08:18→16:05)
[2020-06-07] MEDS: DIVALPROEX SODIUM 500 MG ER TABLET PO SCH ×3 (08:18→16:05)
[2020-06-07] MEDS: OMEGA-3/DHA/EPA/FISH OIL 1,000 MG CAPSULE PO SCH (08:18)
[2020-06-07] MEDS: FOLIC ACID 1 MG TABLET PO SCH (08:18)
[2020-06-07] MEDS: MULTIVITAMINS WITH MINERALS, THERAPEUTIC TABLET PO SCH (08:18)
[2020-06-07 08:51] VITALS: BP 135/101
[2020-06-07 09:28] VITALS: BP 133/52
[2020-06-07] MEDS: LORazepam 2 MG TABLET PO PRN (12:34)
[2020-06-07 16:30] VITALS: BP 124/83
[2020-06-07] MEDS: CloZAPine 100 MG TABLET PO SCH (20:05)
[2020-06-07] MEDS: BREXPIPRAZOLE 1 MG TABLET PO SCH (20:05)
[2020-06-07] MEDS: MELATONIN 5 MG TABLET PO SCH (20:05)
[2020-06-08 06:14] VITALS: BP 139/62
[2020-06-08 07:36] LABS: COVID AG,FIA SOURCE NASOPHARYNGEAL
[2020-06-08] MEDS: DIVALPROEX SODIUM 500 MG ER TABLET PO SCH ×3 (08:38→16:28)
[2020-06-08] MEDS: THIAMINE 100 MG TABLET PO SCH ×2 (08:38→16:42)
[2020-06-08] MEDS: MULTIVITAMINS WITH MINERALS, THERAPEUTIC TABLET PO SCH (08:38)
[2020-06-08] MEDS: FOLIC ACID 1 MG TABLET PO SCH (08:38)
[2020-06-08] MEDS: ACETAMINOPHEN 325 MG TABLET PO PRN ×2 (08:40→12:34)
[2020-06-08] MEDS: OMEGA-3/DHA/EPA/FISH OIL 1,000 MG CAPSULE PO SCH (08:40)
[2020-06-08 08:48] VITALS: BP 110/60
[2020-06-08 16:34] VITALS: BP 109/65
[2020-06-08] MEDS: LORazepam 2 MG TABLET PO PRN (19:03)
[2020-06-08] MEDS: MELATONIN 5 MG TABLET PO SCH (20:09)
[2020-06-08] MEDS: BREXPIPRAZOLE 1 MG TABLET PO SCH (20:09)
[2020-06-08] MEDS: CloZAPine 100 MG TABLET PO SCH (20:09)
[2020-06-09 05:06] VITALS: BP 144/92
[2020-06-09 07:54] LABS: APPEARANCE,URINE CLOUDY (CLEAR); BILIRUBIN,URINE NEGATIVE (NEGATIVE); GLUCOSE, URINE (UA) NEGATIVE (NEGATIVE); KETONES,URINE TRACE mg/dL (NEGATIVE); LEUKOCYTE ESTERASE ,URINE MODERATE (NEGATIVE); NITRATE,URINE NEGATIVE (NEGATIVE); OCCULT BLOOD,URINE NEGATIVE (NEGATIVE); PH,URINE 6.5 (5.0-8.0); PROTEIN,URINE NEGATIVE (NEGATIVE); UROBILINOGEN,URINE 0.2 mg/dL (<=1.0)
[2020-06-09 08:10] VITALS: BP 123/74
[2020-06-09 08:14] LABS: BACTERIA,URINE Many /HPF (None Seen); RBC,URINE 0-2 /HPF (0-2); SQUAMOUS EPITHELIAL CELL,UR Moderate /LPF (None Seen)
[2020-06-09] MEDS: FOLIC ACID 1 MG TABLET PO SCH (08:54)
[2020-06-09] MEDS: THIAMINE 100 MG TABLET PO SCH ×2 (08:54→16:21)
[2020-06-09] MEDS: MULTIVITAMINS WITH MINERALS, THERAPEUTIC TABLET PO SCH (08:54)
[2020-06-09] MEDS: DIVALPROEX SODIUM 500 MG ER TABLET PO SCH ×3 (08:55→16:21)
[2020-06-09] MEDS: OMEGA-3/DHA/EPA/FISH OIL 1,000 MG CAPSULE PO SCH (08:55)
[2020-06-09] MEDS: LORazepam 2 MG TABLET PO PRN (14:49)
[2020-06-09] MEDS: NITROFURANTOIN/NITROFURAN MAC 100 MG CAPSULE [MACROBID] PO SCH (16:21)
[2020-06-09 16:26] VITALS: BP 139/91
[2020-06-09] MEDS: CloZAPine 100 MG TABLET PO SCH (20:09)
[2020-06-09] MEDS: MELATONIN 5 MG TABLET PO SCH (20:09)
[2020-06-09] MEDS: BREXPIPRAZOLE 1 MG TABLET PO SCH (20:09)
[2020-06-10 05:00] VITALS: BP 118/78
[2020-06-10] MEDS: MULTIVITAMINS WITH MINERALS, THERAPEUTIC TABLET PO SCH (09:09)
[2020-06-10] MEDS: OMEGA-3/DHA/EPA/FISH OIL 1,000 MG CAPSULE PO SCH (09:09)
[2020-06-10] MEDS: FOLIC ACID 1 MG TABLET PO SCH (09:09)
[2020-06-10] MEDS: DIVALPROEX SODIUM 500 MG ER TABLET PO SCH ×3 (09:09→15:57)
[2020-06-10] MEDS: THIAMINE 100 MG TABLET PO SCH ×2 (09:09→15:57)
[2020-06-10] MEDS: NITROFURANTOIN/NITROFURAN MAC 100 MG CAPSULE [MACROBID] PO SCH ×2 (09:49→15:57)
[2020-06-10 12:22] VITALS: BP 132/82
[2020-06-10] MEDS: LORazepam 2 MG TABLET PO PRN (13:45)
[2020-06-10 16:25] VITALS: BP 137/76
[2020-06-10] MEDS: CloZAPine 100 MG TABLET PO SCH (20:08)
[2020-06-10] MEDS: MELATONIN 5 MG TABLET PO SCH (20:08)
[2020-06-10] MEDS: BREXPIPRAZOLE 1 MG TABLET PO SCH (20:08)
[2020-06-11 00:39] VITALS: BP 139/78
[2020-06-11] MEDS: THIAMINE 100 MG TABLET PO SCH (08:03)
[2020-06-11] MEDS: DIVALPROEX SODIUM 500 MG ER TABLET PO SCH ×2 (08:03→13:06)
[2020-06-11] MEDS: MULTIVITAMINS WITH MINERALS, THERAPEUTIC TABLET PO SCH (08:03)
[2020-06-11] MEDS: OMEGA-3/DHA/EPA/FISH OIL 1,000 MG CAPSULE PO SCH (08:04)
[2020-06-11] MEDS: FOLIC ACID 1 MG TABLET PO SCH (08:04)
[2020-06-11 08:14] VITALS: BP 135/77
[2020-06-11] MEDS ORDERED: MACR100 PO (08:24)
[2020-06-11] MEDS: NITROFURANTOIN/NITROFURAN MAC 100 MG CAPSULE [MACROBID] PO SCH (08:57)
== END 2020-06-11 13:14 | disposition home or self-care (01) | DRG 750 ==
LOC: EMS 09:35 → B2S 18:09
PROVIDERS: ADMIT Psychiatry & Neurology Psychiatry; ATTEND Psychiatry & Neurology Psychiatry
DX: F25.1 Schizoaffective disorder, depressive type (principal); E03.9 Hypothyroidism, unspecified; E66.9 Obesity, unspecified; E78.5 Hyperlipidemia, unspecified; F41.9 Anxiety disorder, unspecified; K59.00 Constipation, unspecified; Z20.822 Contact with and (suspected) exposure to COVID-19; G47.00 Insomnia, unspecified; I10 Essential (primary) hypertension; J45.909 Unspecified asthma, uncomplicated; Z81.8 Family history of other mental and behavioral disorders
CPT/HCPCS: 80159; 83036; 84439; 84443; 86592; 87086; 87426; 93005; 99285; A9575; G0480; G0481

== ENCOUNTER 2020-06-03 22:13 | Emergency (ER) | payer MEDICAID, OTHER ==
[~2020-06-03] VITALS: Ht 149.9 cm; Wt 90.9 kg
[2020-06-03] MEDS ORDERED: ONDANSETRON HCL 4 MG TABLET PO ONE (22:45)
[2020-06-03 23:45] LABS: BASOPHILS % (AUTO) 0.9 % (0.0-2.0); HEMATOCRIT 38.9 % (36-46); HEMOGLOBIN 12.3 g/dL (12.0-16.0); MEAN CORPUSCULAR HEMOGLOBIN 27.1 pg (26.0-34.0); MEAN CORPUSCULAR HGB CONC 31.7 G/dL (31.0-37.0); MEAN CORPUSCULAR VOLUME 85 fL (80-100); MONOCYTES # (AUTO) 0.4 K/uL (0.1-1.0); MONOCYTES % (AUTO) 5.9 % (2.0-9.0); NEUTROPHILS # (AUTO) 5.6 K/uL (1.8-7.7); NEUTROPHILS % (AUTO) 78.2 % (40.0-70.0); PLATELET COUNT (AUTO) 171 K/uL (150-450); RED BLOOD CELL COUNT(AUTO) 4.55 MIL/uL (4.00-5.20); RED CELL DISTRIBUTION WIDTH 14.8 % (11.5-14.5)
[2020-06-03 23:54] VITALS: BP 113/66
[2020-06-04] LABS: ANION GAP 10 mmol/L (8-16); CALCIUM, TOTAL 9.5 mg/dL (8.8-10.5); CARBON DIOXIDE 32 mmol/L (22-29); CHLORIDE 102 mmol/L (98-107); CREATININE 0.96 mg/dL (0.60-1.30); GLOMERULAR FILTR. RATE CALC > 60 mL/min (>60); GLUCOSE,RANDOM 115 mg/dL (70-110); SODIUM SERUM 144 mmol/L (136-145); UREA NITROGEN, BLOOD 21 mg/dL (7-18)
[2020-06-04 00:06] LABS: ALANINE AMINOTRANSFERASE 44 U/L (12-78); ALBUMIN 3.7 g/dL (3.4-5.0); ALKALINE PHOSPHATASE 106 U/L (46-116); ASPARTATE AMINOTRANSFERASE 26 U/L (15-37); BILIRUBIN,TOTAL 0.3 mg/dL (0.1-1.0); LIPASE 46 U/L (73-393); TOTAL PROTEIN, SERUM 8.9 g/dL (6.4-8.2)
== END 2020-06-04 00:39 | disposition admitted as inpatient to this hospital (09) ==
LOC: EMS 22:13
DX: R11.2 Nausea with vomiting, unspecified (principal); F32.9 Major depressive disorder, single episode, unspecified; I10 Essential (primary) hypertension; F20.9 Schizophrenia, unspecified; Z88.5 Allergy status to narcotic agent; Z88.8 Allergy status to other drugs, medicaments and biological substances; Z90.89 Acquired absence of other organs
CPT/HCPCS: 36415; 80053; 83690; 85025; 99285; Q0162

== ENCOUNTER 2022-05-30 01:17 | Emergency (ER) | payer OTHER ==
[~2022-05-30] VITALS: Ht 149.9 cm; Wt 86.4 kg
[~2022-05-30 01:17] MED LIST changes: -ASEN10TA10 SL; -BUPR-49 PO; +CLOZ100T11 PO; +DIVA500T53 PO; -LEVO75TA4 PO; +MELA5TAB40 PO; -METO25 PO; +NITR-75 PO; +OMEG-135 PO; -SIMV-260 PO; -TRAZ-252 PO
[2022-05-30 02:10] VITALS: BP 137/71
[2022-05-30 02:44] LABS: BASOPHILS % (AUTO) 0.8 % (0.0-2.0); EOSINOPHILS % (AUTO) 2.2 % (1.0-6.0); HEMATOCRIT 35.7 % (36-46); HEMOGLOBIN 11.7 g/dL (12.0-16.0); LYMPHOCYTES % (AUTO) 26.3 % (22.0-44.0); MEAN CORPUSCULAR HEMOGLOBIN 29.7 pg (26.0-34.0); MEAN CORPUSCULAR HGB CONC 32.8 G/dL (31.0-37.0); MEAN CORPUSCULAR VOLUME 90 fL (80-100); MONOCYTES # (AUTO) 0.8 K/uL (0.1-1.0); MONOCYTES % (AUTO) 10.3 % (2.0-9.0); NEUTROPHILS # (AUTO) 4.7 K/uL (1.8-7.7); NEUTROPHILS % (AUTO) 60.4 % (40.0-70.0); PLATELET COUNT (AUTO) 150 K/uL (150-450); RED BLOOD CELL COUNT(AUTO) 3.95 MIL/uL (4.00-5.20); RED CELL DISTRIBUTION WIDTH 14.7 % (11.5-14.5)
[2022-05-30 02:54] LABS: ANION GAP 7 mmol/L (8-16); CALCIUM, TOTAL 9.2 mg/dL (8.8-10.5); CARBON DIOXIDE 30 mmol/L (22-29); CHLORIDE 107 mmol/L (98-107); CREATININE 0.83 mg/dL (0.60-1.30); GLOMERULAR FILTR. RATE CALC > 60 mL/min (>60); GLUCOSE,RANDOM 94 mg/dL (70-110); POTASSIUM 3.4 mmol/L (3.5-5.1); SODIUM SERUM 144 mmol/L (136-145); UREA NITROGEN, BLOOD 24 mg/dL (7-18)
[2022-05-30 03:00] LABS: ALANINE AMINOTRANSFERASE 18 U/L (12-78); ALBUMIN 3.4 g/dL (3.4-5.0); ALKALINE PHOSPHATASE 108 U/L (46-116); ASPARTATE AMINOTRANSFERASE 16 U/L (15-37); BILIRUBIN,TOTAL 0.2 mg/dL (0.1-1.0)
== END 2022-05-30 06:27 | disposition home or self-care (01) ==
LOC: EMS 01:18
DX: F20.9 Schizophrenia, unspecified (principal); F32.A Depression, unspecified; I10 Essential (primary) hypertension; Z90.49 Acquired absence of other specified parts of digestive tract
CPT/HCPCS: 99284; 80053; 85025; 36415; G0480

== ENCOUNTER 2023-07-27 10:07 | Inpatient (IN) | payer MEDICAID, OTHER ==
[~2023-07-27] VITALS: Ht 149.9 cm; Wt 91.0 kg
[~2023-07-27 10:07] MED LIST changes: +CLOM50 PO; +CLOZ100T61 PO; +HYDR25TA2 PO; +LEVO100 PO; +METO-325 PO; +OXYB-34 PO; +POTA-206 PO; +SIMV-260 PO
[2023-07-27 10:41] LABS: BASOPHILS % (AUTO) 0.3 % (0.0-2.0); EOSINOPHILS % (AUTO) 0 % (1.0-6.0); HEMATOCRIT 38.3 % (36-46); HEMOGLOBIN 12.3 g/dL (12.0-16.0); LYMPHOCYTES % (AUTO) 13.7 % (22.0-44.0); MEAN CORPUSCULAR HEMOGLOBIN 27.8 pg (26.0-34.0); MEAN CORPUSCULAR HGB CONC 32.2 G/dL (31.0-37.0); MEAN CORPUSCULAR VOLUME 87 fL (80-100); MONOCYTES # (AUTO) 0.5 K/uL (0.1-1.0); MONOCYTES % (AUTO) 6.2 % (2.0-9.0); NEUTROPHILS # (AUTO) 5.9 K/uL (1.8-7.7); NEUTROPHILS % (AUTO) 79.8 % (40.0-70.0); PLATELET COUNT (AUTO) 165 K/uL (150-450); RED BLOOD CELL COUNT(AUTO) 4.42 MIL/uL (4.00-5.20); RED CELL DISTRIBUTION WIDTH 14.6 % (11.5-14.5); WHITE BLOOD COUNT (AUTO) 7.4 K/uL (4.5-11.0)
[2023-07-27 11:00] LABS: ANION GAP 9 mmol/L (8-16); CALCIUM, TOTAL 9.7 mg/dL (8.8-10.5); CARBON DIOXIDE 30 mmol/L (22-29); CHLORIDE 104 mmol/L (98-107); CREATININE 0.92 mg/dL (0.60-1.30); GLOMERULAR FILTR. RATE CALC > 60 mL/min (>60); GLUCOSE,RANDOM 140 mg/dL (70-110); SODIUM SERUM 143 mmol/L (136-145); UREA NITROGEN, BLOOD 18 mg/dL (7-18)
[2023-07-27 11:02] LABS: POTASSIUM 2.9 mmol/L (3.5-5.1)
[2023-07-27 11:48] LABS: ALCOHOL, BLOOD (SERUM) < 3 mg/dL (0-10)
[2023-07-27] MEDS: POTASSIUM CHLORIDE 20 MEQ ER TABLET PO ONE (11:56)
[2023-07-27 12:01] LABS: COVID AG,FIA SOURCE NASAL SWAB
[2023-07-27 12:23] LABS: SARS-COV2 (COVID) ANTIGEN,FIA Negative (Negative)
[2023-07-27 14:35] LABS: ALCOHOL, URINE DRUG SCREEN NEGATIVE (NEGATIVE); AMPHET/METH SCREEN,URINE NEGATIVE (NEGATIVE); BARBITURATE SCREEN, URINE NEGATIVE (NEGATIVE); BENZODIAZEPINES SCREEN,URINE NEGATIVE (NEGATIVE); CANNABINOID SCREEN,URINE NEGATIVE (NEGATIVE); COCAINE SCREEN,URINE NEGATIVE (NEGATIVE); METHADONE SCREEN, URINE NEGATIVE (NEGATIVE); OPIATE SCREEN,URINE NEGATIVE (NEGATIVE); PHENCYCLIDINE SCREEN,URINE NEGATIVE (NEGATIVE)
[2023-07-27] MEDS: HydrOXYzine PAMOATE 25 MG CAPSULE PO ONE (17:28)
[2023-07-27] MEDS: CloZAPine 100 MG TABLET PO ONE (19:28)
[2023-07-28 13:19] VITALS: BP 138/73; PULSE 103; RESP 18; TEMP 98.3
[2023-07-28] MEDS ORDERED: PROMETHAZINE HCL 25 MG TABLET PO PRN (14:00)
[2023-07-28] MEDS ORDERED: TUBERCULIN, PURIFIED PROTEIN DERIVATIVE 5 TU/0.1 ML SYRINGE ID ONE (14:00)
[2023-07-28] MEDS ORDERED: MAGNESIUM HYDROXIDE SUSPENSION 30 ML UDCUP PO PRN (14:00)
[2023-07-28] MEDS ORDERED: MAG HYDROX/ALUMINUM HYD/SIMETH ES 30 ML SUSPENSION UDCUP PO PRN (14:00)
[2023-07-28] MEDS ORDERED: LURASIDONE HCL 20 MG TABLET PO PRN (14:00)
[2023-07-28] MEDS ORDERED: GuaiFENesin/D-METHORPHAN [SUGAR-FREE] 200-20MG/10 ML SYRUP UDCUP PO PRN (14:00)
[2023-07-28] MEDS ORDERED: ACETAMINOPHEN 325 MG TABLET PO PRN (14:00)
[2023-07-28] MEDS: THIAMINE 100 MG TABLET PO SCH (17:44)
[2023-07-28] MEDS: LURASIDONE HCL 40 MG TABLET PO SCH (17:44)
[2023-07-28 20:07] VITALS: BP 135/71; PULSE 98; RESP 17; TEMP 98.4
[2023-07-28] MEDS: CloZAPine 100 MG TABLET PO SCH (20:49)
[2023-07-28] MEDS: MELATONIN 5 MG TABLET PO SCH (20:49)
[2023-07-28] MEDS ORDERED: MELATONIN 5 MG TABLET PO SCH (21:00)
[2023-07-29] MEDS: LEVOTHYROXINE SODIUM 100 MCG TABLET PO SCH (06:29)
[2023-07-29 08:29] LABS: HEMOGLOBIN A1C 5.9 % (3.8-5.6)
[2023-07-29 08:31] LABS: FREE T4 (FREE THYROXINE) 1.1 ng/dL (0.76-1.46); POTASSIUM 3.1 mmol/L (3.5-5.1); THYROID STIMULATING HORMONE 3.14 uIU/mL (0.36-3.74)
[2023-07-29] MEDS: FOLIC ACID 1 MG TABLET PO SCH (09:48)
[2023-07-29] MEDS: MULTIVITAMINS WITH MINERALS, THERAPEUTIC TABLET PO SCH (09:48)
[2023-07-29] MEDS: METOPROLOL SUCCINATE 50 MG ER TABLET PO SCH (09:48)
[2023-07-29] MEDS: OMEGA-3/DHA/EPA/FISH OIL 1,000 MG CAPSULE PO SCH (09:48)
[2023-07-29] MEDS: SIMVASTATIN 20 MG TABLET PO SCH (09:49)
[2023-07-29] MEDS: OXYBUTYNIN CHLORIDE 5 MG ER TABLET PO SCH (09:49)
[2023-07-29] MEDS: HYDROCHLOROTHIAZIDE 25 MG TABLET PO SCH (09:49)
[2023-07-29] MEDS: POTASSIUM CHLORIDE 10% 40 MEQ/30 ML LIQUID UDCUP PO SCH (09:50)
[2023-07-29 10:19] VITALS: BP 114/73; PULSE 101; RESP 18; TEMP 96.7
[2023-07-29] MEDS ORDERED: BREXPIPRAZOLE 1 MG TABLET PO PRN (18:00)
[2023-07-29 20:16] VITALS: BP 112/67; PULSE 90; RESP 18; TEMP 97.9
[2023-07-29] MEDS: BREXPIPRAZOLE 2 MG TABLET PO SCH (20:45)
[2023-07-29] MEDS: DIVALPROEX SODIUM 500 MG ER TABLET PO SCH (20:46)
[2023-07-30 09:28] VITALS: BP 109/51; PULSE 91; RESP 16; TEMP 97.8
[2023-07-30] MEDS: HydrOXYzine PAMOATE 50 MG CAPSULE PO PRN (11:39)
[2023-07-30 20:02] VITALS: BP 133/88; PULSE 105; RESP 18; TEMP 97.5
[2023-07-31 11:32] VITALS: BP 105/67; PULSE 105; RESP 18; TEMP 97.6
[2023-07-31 20:38] VITALS: BP 129/60; PULSE 91; RESP 18; TEMP 97.6
[2023-07-31 21:55] VITALS: PULSE 97; RESP 17; O2SAT 97
[2023-08-01 01:16] VITALS: PULSE 82; RESP 16; O2SAT 84
[2023-08-01 04:31] VITALS: PULSE 88; RESP 12; O2SAT 95
[2023-08-01 09:18] VITALS: BP 127/81; PULSE 105; RESP 18; TEMP 97.5
[2023-08-01 20:50] VITALS: BP 110/75; PULSE 92; RESP 18; TEMP 97.9
[2023-08-02 10:32] VITALS: BP 136/76; PULSE 98; RESP 19; TEMP 97.3
[2023-08-02] MEDS: DULoxetine HCL 20 MG CAPSULE PO SCH (21:17)
[2023-08-02 21:36] VITALS: BP 106/56; PULSE 88; RESP 18; TEMP 99.4
[2023-08-03 06:53] LABS: BASOPHILS % (AUTO) 0.2 % (0.0-2.0); EOSINOPHILS % (AUTO) 0.1 % (1.0-6.0); HEMATOCRIT 36.3 % (36-46); HEMOGLOBIN 11.6 g/dL (12.0-16.0); LYMPHOCYTES % (AUTO) 27.8 % (22.0-44.0); MEAN CORPUSCULAR HEMOGLOBIN 27.7 pg (26.0-34.0); MEAN CORPUSCULAR VOLUME 87 fL (80-100); MONOCYTES # (AUTO) 0.6 K/uL (0.1-1.0); MONOCYTES % (AUTO) 7.7 % (2.0-9.0); NEUTROPHILS # (AUTO) 4.6 K/uL (1.8-7.7); NEUTROPHILS % (AUTO) 64.2 % (40.0-70.0); PLATELET COUNT (AUTO) 144 K/uL (150-450); RED BLOOD CELL COUNT(AUTO) 4.18 MIL/uL (4.00-5.20); RED CELL DISTRIBUTION WIDTH 14.9 % (11.5-14.5); WHITE BLOOD COUNT (AUTO) 7.2 K/uL (4.5-11.0)
[2023-08-03 08:47] VITALS: BP 159/96; PULSE 92; RESP 18; TEMP 97.5
[2023-08-03] MEDS: DULoxetine HCL 30 MG CAPSULE PO SCH (20:55)
[2023-08-03 21:12] VITALS: BP 138/92; PULSE 90; RESP 18; TEMP 97
[2023-08-04 08:30] VITALS: BP 129/71; PULSE 91; RESP 18; TEMP 97.4
[2023-08-04 17:07] LABS: CLOZAPINE & NORCLOZAPINE 1791 ng/mL; NORCLOZAPINE 539 ng/mL (Not Estab.)
[2023-08-04] MEDS: DULoxetine HCL 20 MG CAPSULE PO SCH (20:52)
[2023-08-04 21:31] VITALS: BP 100/58; PULSE 90; RESP 18; TEMP 98.8
[2023-08-05 08:55] VITALS: BP 127/73; PULSE 91; RESP 19; TEMP 97.1
[2023-08-05] MEDS: GABAPENTIN 300 MG CAPSULE PO PRN (16:15)
[2023-08-05 20:30] VITALS: BP 109/64; PULSE 78; RESP 18; TEMP 98.5
[2023-08-05] MEDS: GLYCOPYRROLATE 1 MG TABLET PO SCH (21:29)
[2023-08-05] MEDS: CloZAPine 100 MG TABLET PO SCH (21:29)
[2023-08-05] MEDS: DIVALPROEX SODIUM 500 MG ER TABLET PO SCH (21:30)
[2023-08-05] MEDS: DULoxetine HCL 20 MG CAPSULE PO SCH (21:30)
[2023-08-06 10:52] VITALS: BP 159/81; PULSE 90; RESP 18; TEMP 98.6
[2023-08-06] MEDS: DULoxetine HCL 30 MG CAPSULE PO SCH (20:39)
[2023-08-06 21:52] VITALS: BP 120/73; PULSE 78; RESP 18; TEMP 98.8
[2023-08-07 10:35] VITALS: BP 127/73; PULSE 100; RESP 18; TEMP 97.3
[2023-08-07 20:56] VITALS: BP 137/70; PULSE 111; RESP 18; TEMP 98.2
[2023-08-08 08:45] VITALS: BP 141/77; PULSE 105; RESP 18; TEMP 97.9
[2023-08-08] MEDS: LOPERAMIDE HCL 2 MG CAPSULE PO PRN (15:09)
[2023-08-08] MEDS ORDERED: CLOZ100T61 PO (15:31)
[2023-08-08] MEDS ORDERED: BREX2TAB PO (15:31)
[2023-08-08] MEDS ORDERED: DULO-114 PO (15:31)
[2023-08-08] MEDS ORDERED: DIVA500T69 PO (15:31)
[2023-08-08] MEDS ORDERED: GLYC1TAB27 PO (15:31)
[2023-08-08 22:20] VITALS: BP 114/63; PULSE 90; RESP 18; TEMP 97.1
[2023-08-09] MEDS ORDERED: MULT-1303 PO (10:05)
[2023-08-09 17:55] VITALS: BP 128/78; PULSE 91; RESP 16; TEMP 98.2
== END 2023-08-09 15:30 | disposition home or self-care (01) | DRG 750 ==
LOC: EMS 10:07 → 3EI 07-28 10:14
PROVIDERS: ADMIT Psychiatry & Neurology Child & Adolescent Psychiatry; ATTEND Psychiatry & Neurology Psychiatry
PROC: GZHZZZZ Group Psychotherapy (ICD-10-PCS; 2023-07-28)
PROC: GZ51ZZZ Individual Psychotherapy, Behavioral (ICD-10-PCS; 2023-07-28)
PROC: 5A09357 Assistance with Respiratory Ventilation, Less than 24 Consecutive Hours, Continuous Positive Airway Pressure (ICD-10-PCS; principal; 2023-07-31)
DX: F25.1 Schizoaffective disorder, depressive type (principal); G93.41 Metabolic encephalopathy; E11.9 Type 2 diabetes mellitus without complications; Z91.148 Patient's other noncompliance with medication regimen for other reason; R45.851 Suicidal ideations; Z20.822 Contact with and (suspected) exposure to COVID-19; E03.9 Hypothyroidism, unspecified; G47.33 Obstructive sleep apnea (adult) (pediatric); I10 Essential (primary) hypertension; R32 Unspecified urinary incontinence; E87.6 Hypokalemia; K59.00 Constipation, unspecified
CPT/HCPCS: 80048; 80159; 80164; 80307; 83036; 84132; 84439; 84443; 85025; 86592; 87081; 93005; 94660; 99285; G0480; Q9967

== ENCOUNTER 2024-06-07 12:39 | Inpatient (IN) | payer MEDICAID, OTHER ==
[~2024-06-07] VITALS: Ht 149.9 cm; Wt 76.1 kg
[~2024-06-07 12:39] MED LIST changes: +BREX2TAB PO; -CLOM50 PO; -CLOZ100T11 PO; -DIVA500T53 PO; +DULO-114 PO; +GLYC1TAB27 PO; +MULT-1303 PO; -NITR-75 PO
[2024-06-07 12:53] LABS: COVID AG,FIA SOURCE NASAL SWAB
[2024-06-07] MEDS ORDERED: CLOZ100T11 PO (12:58)
[2024-06-07] MEDS ORDERED: LISI20TA24 PO (12:58)
[2024-06-07] MEDS ORDERED: DIVA-85 PO (12:58)
[2024-06-07] MEDS ORDERED: METH4TAB PO (12:58)
[2024-06-07] MEDS ORDERED: LUMA21CA PO (12:58)
[2024-06-07] MEDS ORDERED: HYDR-4584 PO (12:58)
[2024-06-07] MEDS ORDERED: SIMV-43 PO (12:58)
[2024-06-07] MEDS ORDERED: CLOZ25TA10 PO (12:58)
[2024-06-07] MEDS ORDERED: VILA20TA2 PO (12:58)
[2024-06-07] MEDS ORDERED: ACET-66 PO (12:58)
[2024-06-07] MEDS ORDERED: METO-391 PO (12:58)
[2024-06-07] MEDS ORDERED: VILA10TA2 PO (12:58)
[2024-06-07] MEDS ORDERED: GABA-529 PO (12:58)
[2024-06-07] MEDS ORDERED: OXYC5TAB3 PO (12:58)
[2024-06-07 13:09] LABS: BASOPHILS % (AUTO) 0.6 % (0.0-2.0); EOSINOPHILS % (AUTO) 0.9 % (1.0-6.0); HEMATOCRIT 40.1 % (36-46); HEMOGLOBIN 12.9 g/dL (12.0-16.0); LYMPHOCYTES # (AUTO) 1.9 K/uL (1.0-4.8); LYMPHOCYTES % (AUTO) 18.1 % (22.0-44.0); MEAN CORPUSCULAR HEMOGLOBIN 29.4 pg (26.0-34.0); MEAN CORPUSCULAR HGB CONC 32.1 G/dL (31.0-37.0); MEAN CORPUSCULAR VOLUME 92 fL (80-100); MONOCYTES # (AUTO) 0.6 K/uL (0.1-1.0); MONOCYTES % (AUTO) 5.5 % (2.0-9.0); NEUTROPHILS # (AUTO) 7.8 K/uL (1.8-7.7); NEUTROPHILS % (AUTO) 74.9 % (40.0-70.0); PLATELET COUNT (AUTO) 168 K/uL (150-450); RED BLOOD CELL COUNT(AUTO) 4.38 MIL/uL (4.00-5.20); RED CELL DISTRIBUTION WIDTH 14.7 % (11.5-14.5); WHITE BLOOD COUNT (AUTO) 10.5 K/uL (4.5-11.0)
[2024-06-07 13:12] LABS: SARS-COV2 (COVID) ANTIGEN,FIA Negative (Negative)
[2024-06-07 13:16] LABS: ANION GAP 5 mmol/L (8-16); CALCIUM, TOTAL 9.2 mg/dL (8.8-10.5); CARBON DIOXIDE 32 mmol/L (22-29); CHLORIDE 108 mmol/L (98-107); CREATININE 0.78 mg/dL (0.60-1.30); GLOMERULAR FILTR. RATE CALC > 60 mL/min (>60); GLUCOSE,RANDOM 84 mg/dL (70-110); POTASSIUM 3.7 mmol/L (3.5-5.1); SODIUM SERUM 145 mmol/L (136-145); UREA NITROGEN, BLOOD 24 mg/dL (7-18)
[2024-06-07 13:36] LABS: THYROID STIMULATING HORMONE 0.59 uIU/mL (0.36-3.74); VALPROIC ACID 33 mcg/mL (50-100)
[2024-06-07 13:56] LABS: ALCOHOL, BLOOD (SERUM) < 3 mg/dL (0-10)
[2024-06-07 16:05] LABS: APPEARANCE,URINE HAZY (CLEAR); COLOR,URINE YELLOW (YELLOW); GLUCOSE, URINE (UA) NEGATIVE (NEGATIVE); KETONES,URINE 40-60 mg/dL (NEGATIVE); LEUKOCYTE ESTERASE ,URINE LARGE (NEGATIVE); NITRATE,URINE NEGATIVE (NEGATIVE); OCCULT BLOOD,URINE NEGATIVE (NEGATIVE); PROTEIN,URINE 30-70 mg/dL (NEGATIVE); SPECIFIC GRAVITIY, URINE 1.028 (1.003-1.030)
[2024-06-07 16:06] LABS: BILIRUBIN,URINE SMALL (NEGATIVE)
[2024-06-07 16:12] LABS: ALCOHOL, URINE DRUG SCREEN NEGATIVE (NEGATIVE); AMPHET/METH SCREEN,URINE NEGATIVE (NEGATIVE); BARBITURATE SCREEN, URINE NEGATIVE (NEGATIVE); BENZODIAZEPINES SCREEN,URINE NEGATIVE (NEGATIVE); CANNABINOID SCREEN,URINE NEGATIVE (NEGATIVE); COCAINE SCREEN,URINE NEGATIVE (NEGATIVE); METHADONE SCREEN, URINE NEGATIVE (NEGATIVE); OPIATE SCREEN,URINE NEGATIVE (NEGATIVE); PHENCYCLIDINE SCREEN,URINE NEGATIVE (NEGATIVE)
[2024-06-07 16:15] LABS: BACTERIA,URINE Moderate /HPF (None Seen); RBC,URINE 0-2 /HPF (0-2); SQUAMOUS EPITHELIAL CELL,UR Rare /LPF (None Seen)
[2024-06-07] MEDS: CEPHALEXIN MONOHYDRATE 500 MG CAPSULE PO ONE (18:55)
[2024-06-07 22:00] VITALS: BP 102/73; PULSE 85; RESP 18; TEMP 97.4; O2SAT 99
[2024-06-08] MEDS: ZOLPIDEM TARTRATE 10 MG TABLET PO PRN (00:18)
[2024-06-08] MEDS ORDERED: OMEPRAZOLE 20 MG CAPSULE PO PRN (06:45)
[2024-06-08] MEDS ORDERED: LOPERAMIDE HCL 2 MG CAPSULE PO PRN (06:45)
[2024-06-08] MEDS ORDERED: MAG HYDROX/ALUMINUM HYD/SIMETH ES 30 ML SUSPENSION UDCUP PO PRN (06:45)
[2024-06-08] MEDS ORDERED: BACITRACIN 28 GM OINTMENT TP PRN (06:45)
[2024-06-08] MEDS ORDERED: MAGNESIUM HYDROXIDE SUSPENSION 30 ML UDCUP PO PRN (06:45)
[2024-06-08] MEDS ORDERED: ONDANSETRON 4 MG TABLET PO PRN (06:45)
[2024-06-08] MEDS ORDERED: BENZOCAINE/MENTHOL [CEPACOL] LOZENGE PO PRN (06:45)
[2024-06-08] MEDS ORDERED: CloNIDine HCL 0.1 MG TABLET PO PRN (06:45)
[2024-06-08] MEDS ORDERED: DOCUSATE SODIUM 100 MG CAPSULE PO PRN (06:45)
[2024-06-08] MEDS ORDERED: ACETAMINOPHEN 325 MG TABLET PO PRN (06:45)
[2024-06-08] MEDS ORDERED: ALBUTEROL SULFATE HFA 90 MCG/PUFF 8 GM INHALER IH PRN (06:45)
[2024-06-08] MEDS ORDERED: PETROLATUM,WHITE 28 GM JELLY TP PRN (06:45)
[2024-06-08 08:08] VITALS: BP 96/56; PULSE 80; RESP 17; TEMP 97.8; O2SAT 97
[2024-06-08] MEDS: IBUPROFEN 600 MG TABLET PO PRN (08:08)
[2024-06-08] MEDS: CEPHALEXIN MONOHYDRATE 500 MG CAPSULE PO SCH (08:08)
[2024-06-08] MEDS: HALOPERIDOL 5 MG TABLET PO PRN (08:27)
[2024-06-08] MEDS: LORazepam 2 MG TABLET PO PRN (08:27)
[2024-06-08] MEDS: DICLOFENAC SODIUM 1% 100 GM GEL [2GM] TP SCH (08:29)
[2024-06-08 09:08] VITALS: BP 101/62; PULSE 72; RESP 17; TEMP 98; O2SAT 97
[2024-06-08] MEDS: GABAPENTIN 300 MG CAPSULE PO SCH (16:41)
[2024-06-08] MEDS: DIVALPROEX SODIUM 500 MG ER TABLET PO SCH (16:41)
[2024-06-08] MEDS: CloZAPine 100 MG TABLET PO SCH (16:41)
[2024-06-08] MEDS: HydrOXYzine PAMOATE 50 MG CAPSULE PO SCH (16:42)
[2024-06-08 22:30] VITALS: BP 121/70; PULSE 98; RESP 18; TEMP 97.9; O2SAT 100
[2024-06-09 08:16] LABS: CHOL/HDL RATIO 2.3 (3.9-5.7)
[2024-06-09 12:17] VITALS: BP 108/73; PULSE 109; RESP 16; TEMP 97; O2SAT 97
[2024-06-09 20:00] VITALS: BP 121/67; PULSE 72; RESP 18; TEMP 97.9; O2SAT 95
[2024-06-09 21:19] VITALS: BP 105/48; PULSE 124; RESP 20; TEMP 98.2; O2SAT 80
[2024-06-09 21:21] VITALS: BP 108/51; PULSE 105; RESP 21; O2SAT 78
[2024-06-09 21:30] VITALS: PULSE 123; O2SAT 79
[2024-06-09 21:45] LABS: GLUCOMETER DEV NAME(LOC) 3EX.2; GLUCOSE,POINT OF CARE 103 MG/DL (70-110)
[2024-06-09] MEDS ORDERED: 0.9% SODIUM CHLORIDE 10 ML SYRINGE IVP PRN (22:15)
[2024-06-09] MEDS ORDERED: SODIUM CHLORIDE 0.9% 2,300 ML IV ONE (22:15)
[2024-06-09] MEDS ORDERED: CefTRIAXone 1 GM/DEXTROSE 50 ML IV ONE (22:15)
[2024-06-09 22:17] LABS: BASOPHILS % (AUTO) 0.5 % (0.0-2.0); EOSINOPHILS % (AUTO) 0.3 % (1.0-6.0); HEMATOCRIT 41.5 % (36-46); HEMOGLOBIN 13.1 g/dL (12.0-16.0); LYMPHOCYTES # (AUTO) 2.1 K/uL (1.0-4.8); LYMPHOCYTES % (AUTO) 15.9 % (22.0-44.0); MEAN CORPUSCULAR HGB CONC 31.6 G/dL (31.0-37.0); MEAN CORPUSCULAR VOLUME 92 fL (80-100); MONOCYTES # (AUTO) 0.7 K/uL (0.1-1.0); MONOCYTES % (AUTO) 5.6 % (2.0-9.0); NEUTROPHILS # (AUTO) 10.2 K/uL (1.8-7.7); NEUTROPHILS % (AUTO) 77.7 % (40.0-70.0); PLATELET COUNT (AUTO) 136 K/uL (150-450); RED BLOOD CELL COUNT(AUTO) 4.53 MIL/uL (4.00-5.20); RED CELL DISTRIBUTION WIDTH 15.1 % (11.5-14.5); WHITE BLOOD COUNT (AUTO) 13.2 K/uL (4.5-11.0)
[2024-06-09 22:26] LABS: ALBUMIN 3.3 g/dL (3.4-5.0); BILIRUBIN,DIRECT 0.2 mg/dL (0.00-0.20); BILIRUBIN,TOTAL 0.4 mg/dL (0.1-1.0); TOTAL PROTEIN, SERUM 8.3 g/dL (6.4-8.2)
[2024-06-09] MEDS ORDERED: PHENYLEPHRINE HCL IN 0.9% NACL 400 MCG/10 ML SYRINGE IVP ONE (22:26)
[2024-06-09 22:32] LABS: ANION GAP 6 mmol/L (8-16); CALCIUM, TOTAL 9.3 mg/dL (8.8-10.5); CARBON DIOXIDE 31 mmol/L (22-29); CHLORIDE 106 mmol/L (98-107); CREATININE 0.85 mg/dL (0.60-1.30); GLOMERULAR FILTR. RATE CALC > 60 mL/min (>60); GLUCOSE,RANDOM 98 mg/dL (70-110); SODIUM SERUM 143 mmol/L (136-145); TROPONIN I-HIGH SENSITIVITY 19 ng/L (<51); UREA NITROGEN, BLOOD 17 mg/dL (7-18)
[2024-06-09 22:34] LABS: PROTHROMBIN TIME 9.6 SEC (9.4-11.6)
[2024-06-09 22:40] LABS: B-TYPE NATRIURETIC PEPTIDE 39 pg/mL (0-100)
[2024-06-09 22:42] LABS: VALPROIC ACID 37 mcg/mL (50-100)
[2024-06-09 22:47] LABS: LACTIC ACID 2.2 mmol/L (0.4-2.0)
[2024-06-09] MEDS ORDERED: PROPOFOL 1000 MG/ISO-OSM 100 ML ONE (23:11)
[2024-06-09] MEDS ORDERED: LevETIRAcetam 1,000 MG in DEXTROSE 5%-WATER 100 ML IV ONE (23:30)
[2024-06-10] MEDS: FentaNYL CIT 1000MCG/0.9% NACL 100 ML IV PRN (00:02)
[2024-06-10 00:04] VITALS: BP 81/45; PULSE 143
[2024-06-10] MEDS: PROPOFOL 1000 MG/ISO-OSM 100 ML IV PRN (00:04)
[2024-06-10] MEDS: PIPERACILLIN/TAZO 3.375 GM/D5W 50 ML IV ONE (00:05)
[2024-06-10] MEDS: NOREPINEPHRINE 8 MG/0.9 % NACL 250 ML IV PRN (00:23)
[2024-06-10 01:24] LABS: APPEARANCE,URINE CLEAR (CLEAR); BILIRUBIN,URINE NEGATIVE (NEGATIVE); COLOR,URINE LIGHT YELLOW (YELLOW); GLUCOSE, URINE (UA) NEGATIVE (NEGATIVE); KETONES,URINE NEGATIVE (NEGATIVE); LEUKOCYTE ESTERASE ,URINE NEGATIVE (NEGATIVE); NITRATE,URINE NEGATIVE (NEGATIVE); OCCULT BLOOD,URINE SMALL (NEGATIVE); PROTEIN,URINE NEGATIVE (NEGATIVE); UROBILINOGEN,URINE <=1.0 mg/dL (<=1.0)
[2024-06-10 02:06] LABS: WBC,URINE 0-2 /HPF (0-5)
[2024-06-10 02:07] LABS: BACTERIA,URINE None Seen /HPF (None Seen)
[2024-06-10 03:06] LABS: ABG BASE EXCESS -2.2 mmol/L (-2.0-3.0); ABG CARBOXYHEMOGLOBIN 0.3 % (0.5-1.5); ABG HCO3 22.9 mmol/L (21.0-28.0); ABG METHEMOGLOBIN 0.6 % (0.0-1.5); ABG OXYGEN CONTENT 15.9 mL/dL (15.0-23.0); ABG OXYHEMOGLOBIN 97.1 % (94.0-98.0); ABG PCO2 42 mmHg (32.0-45.0); ABG PH 7.361 (7.350-7.450); ABG TOTAL HEMOGLOBIN 11.5 G/dL (12.0-16.0); PO2, ARTERIAL BG 133.3 mmHg (83.0-108.0); SOURCE, BLOOD GAS ARTERIAL
[2024-06-10 03:08] LABS: O2 DEVICE,BLOOD GAS VENT (ROOM AIR); PEEP,BG 10 cm H2O; SITE, BLOOD GAS LFT FEMORAL; VT, ABG 350 ml
[2024-06-14 09:34] LABS: CLOZAPINE & NORCLOZAPINE 607 ng/mL; NORCLOZAPINE 99 ng/mL (Not Estab.)
== END 2024-06-09 22:27 | disposition short-term general hospital (02) | DRG 750 ==
LOC: EMS 12:43 → 3EI 23:38
PROVIDERS: ADMIT Psychiatry & Neurology Psychiatry; ATTEND Psychiatry & Neurology Psychiatry
DX: F25.9 Schizoaffective disorder, unspecified (principal); J96.91 Respiratory failure, unspecified with hypoxia; J69.0 Pneumonitis due to inhalation of food and vomit; E03.9 Hypothyroidism, unspecified; F25.0 Schizoaffective disorder, bipolar type; E78.00 Pure hypercholesterolemia, unspecified; F31.4 Bipolar disorder, current episode depressed, severe, without psychotic features; Z20.822 Contact with and (suspected) exposure to COVID-19; G47.00 Insomnia, unspecified; F41.9 Anxiety disorder, unspecified; I10 Essential (primary) hypertension; K21.9 Gastro-esophageal reflux disease without esophagitis; M19.90 Unspecified osteoarthritis, unspecified site; N39.0 Urinary tract infection, site not specified; G47.33 Obstructive sleep apnea (adult) (pediatric); R26.9 Unspecified abnormalities of gait and mobility
CPT/HCPCS: 70450; 71045; 71275; 80048; 80061; 80076; 80159; 80164; 80307; 81001; 82805; 82962; 83605; 83880; 84145; 84443; 84484; 85025; 85610; 85730; 87040; 87077; 87086; 87186; 87205; 93005; 94660; 99285; G0480; J0696; J0712; J2543; J2704; J3010; J7030; J7060; 36415-L1; 36415-TC

== ENCOUNTER 2024-10-15 15:22 | Inpatient (IN) | payer MEDICAID, OTHER ==
[~2024-10-15] VITALS: Ht 149.9 cm; Wt 69.9 kg
[~2024-10-15 15:22] MED LIST changes: +AMOX1TAB15 PO; -BREX2TAB PO; -CLOZ100T61 PO; +DIVA-153 PO; -DULO-114 PO; -GLYC1TAB27 PO; -HYDR25TA2 PO; -LEVO100 PO; +LEVO125T95 PO; -MELA5TAB40 PO; +MIRT-92 PO; -MULT-1303 PO; -OMEG-135 PO; -OXYB-34 PO; +PANT-31 PO; -POTA-206 PO; +SCOP1PAT12 TP
[2024-10-15] MEDS ORDERED: DIVA-112 PO (15:50)
[2024-10-15] MEDS ORDERED: LEVO100 PO (15:50)
[2024-10-15] MEDS ORDERED: METO-391 PO (15:50)
[2024-10-15] MEDS ORDERED: AMLO5TAB66 PO (15:50)
[2024-10-15] MEDS ORDERED: SIMV-43 PO (15:50)
[2024-10-15] MEDS ORDERED: GABA-529 PO (15:50)
[2024-10-15 16:35] LABS: PLATELET COUNT (AUTO) 206 K/uL (150-450); RED BLOOD CELL COUNT(AUTO) 4.52 MIL/uL (4.00-5.20); RED CELL DISTRIBUTION WIDTH 16.3 % (11.5-14.5); WHITE BLOOD COUNT (AUTO) 6.2 K/uL (4.5-11.0)
[2024-10-15 16:44] LABS: CALCIUM, TOTAL 8.7 mg/dL (8.8-10.5); CREATININE 1.28 mg/dL (0.60-1.30); GLOMERULAR FILTR. RATE CALC 43.0 mL/min (>60); GLUCOSE,RANDOM 78.0 mg/dL (70-110); SODIUM SERUM 141.0 mmol/L (136-145); UREA NITROGEN, BLOOD 21.0 mg/dL (7-18)
[2024-10-15 16:48] LABS: ASPARTATE AMINOTRANSFERASE 22 U/L (15-37); TOTAL PROTEIN, SERUM 8.0 g/dL (6.4-8.2)
[2024-10-15 17:41] LABS: APPEARANCE,URINE CLEAR (CLEAR); GLUCOSE, URINE (UA) NEGATIVE (NEGATIVE); LEUKOCYTE ESTERASE ,URINE NEGATIVE (NEGATIVE); NITRATE,URINE NEGATIVE (NEGATIVE); OCCULT BLOOD,URINE NEGATIVE (NEGATIVE); PH,URINE DRUG SCREEN 7.0 (5.0-8.0); SPECIFIC GRAVITIY, URINE 1.013 (1.003-1.030)
[2024-10-15 17:49] LABS: AMPHET/METH SCREEN,URINE NEGATIVE (NEGATIVE); BARBITURATE SCREEN, URINE NEGATIVE (NEGATIVE); CANNABINOID SCREEN,URINE NEGATIVE (NEGATIVE); COCAINE SCREEN,URINE NEGATIVE (NEGATIVE); METHADONE SCREEN, URINE NEGATIVE (NEGATIVE)
[2024-10-15 17:55] LABS: ALCOHOL, URINE DRUG SCREEN NEGATIVE (NEGATIVE)
[2024-10-15 18:14] VITALS: O2SAT 96
[2024-10-15 20:22] LABS: COVID AG,FIA SOURCE NASAL SWAB
[2024-10-15 20:43] LABS: SARS-COV2 (COVID) ANTIGEN,FIA Negative (Negative)
[2024-10-15] MEDS ORDERED: DOCUSATE SODIUM 100 MG CAPSULE PO PRN (22:15)
[2024-10-15] MEDS ORDERED: MAG HYDROX/ALUMINUM HYD/SIMETH ES 30 ML SUSPENSION UDCUP PO PRN (22:15)
[2024-10-15] MEDS ORDERED: ONDANSETRON 4 MG TABLET PO PRN (22:15)
[2024-10-15] MEDS ORDERED: PETROLATUM,WHITE 28 GM JELLY TP PRN (22:15)
[2024-10-15] MEDS ORDERED: NICOTINE 14 MG/24 HOUR PATCH TD PRN (22:15)
[2024-10-15] MEDS ORDERED: GuaiFENesin/D-METHORPHAN [SUGAR-FREE] 200-20MG/10 ML SYRUP UDCUP PO PRN (22:15)
[2024-10-15] MEDS ORDERED: LOPERAMIDE HCL 2 MG CAPSULE PO PRN (22:15)
[2024-10-15] MEDS ORDERED: ALBUTEROL SULFATE HFA 90 MCG/PUFF 8 GM INHALER IH PRN (22:15)
[2024-10-15] MEDS ORDERED: MAGNESIUM HYDROXIDE SUSPENSION 30 ML UDCUP PO PRN (22:15)
[2024-10-15] MEDS ORDERED: ACETAMINOPHEN 325 MG TABLET PO PRN (22:15)
[2024-10-16 00:01] VITALS: BP 109/60; PULSE 74; RESP 18; TEMP 97.6; O2SAT 100
[2024-10-16] MEDS: LEVOTHYROXINE SODIUM 100 MCG TABLET PO SCH (06:29)
[2024-10-16 06:41] LABS: PLATELET COUNT (AUTO) 177 K/uL (150-450); RED BLOOD CELL COUNT(AUTO) 4.12 MIL/uL (4.00-5.20); RED CELL DISTRIBUTION WIDTH 16.0 % (11.5-14.5); WHITE BLOOD COUNT (AUTO) 6.1 K/uL (4.5-11.0)
[2024-10-16 06:59] LABS: CHOL/HDL RATIO 3.5 (3.9-5.7); LDL CHOL (CALC.) 91.0 mg/dL (0-130)
[2024-10-16 07:09] LABS: ASPARTATE AMINOTRANSFERASE 12 U/L (15-37); CALCIUM, TOTAL 8.4 mg/dL (8.8-10.5); CREATININE 0.68 mg/dL (0.60-1.30); GLOMERULAR FILTR. RATE CALC > 60 mL/min (>60); GLUCOSE,RANDOM 79 mg/dL (70-110); SODIUM SERUM 142 mmol/L (136-145); TOTAL PROTEIN, SERUM 6.7 g/dL (6.4-8.2); UREA NITROGEN, BLOOD 24 mg/dL (7-18)
[2024-10-16] MEDS: METOPROLOL SUCCINATE 50 MG ER TABLET PO SCH (08:30)
[2024-10-16] MEDS: GABAPENTIN 100 MG CAPSULE PO SCH (08:30)
[2024-10-16] MEDS ORDERED: LEVOTHYROXINE SODIUM 100 MCG TABLET PO SCH (09:00)
[2024-10-16 10:04] VITALS: BP 113/98; PULSE 105; RESP 18; TEMP 98.4; O2SAT 98
[2024-10-16] MEDS: DIVALPROEX SODIUM 500 MG ER TABLET PO SCH (16:15)
[2024-10-16] MEDS: SIMVASTATIN 20 MG TABLET PO SCH (20:30)
[2024-10-16] MEDS: MIRTAZAPINE 15 MG TABLET PO SCH (20:30)
[2024-10-16] MEDS: IBUPROFEN 400 MG TABLET PO PRN (20:45)
[2024-10-16 20:50] VITALS: BP 113/52; PULSE 87; RESP 19; TEMP 98.2; O2SAT 98
[2024-10-17 08:47] VITALS: BP 119/51; PULSE 78; RESP 18; TEMP 97.9; O2SAT 95
[2024-10-17] MEDS: MULTIVITAMINS WITH MINERALS, THERAPEUTIC TABLET PO SCH (09:29)
[2024-10-17 21:28] VITALS: BP 102/50; PULSE 85; RESP 18; TEMP 97.6; O2SAT 97
[2024-10-17 22:53] VITALS: BP 126/50; PULSE 82; RESP 18; TEMP 98.4; O2SAT 97
[2024-10-17 23:29] VITALS: RESP 16
[2024-10-18 11:20] VITALS: BP 123/71; PULSE 69; RESP 18; TEMP 98; O2SAT 99
[2024-10-18 20:00] VITALS: BP 106/62; PULSE 64; RESP 18; TEMP 97.5; O2SAT 97
[2024-10-18] MEDS: MIRTAZAPINE 30 MG TABLET PO SCH (20:38)
[2024-10-18 21:15] VITALS: BP 149/64; PULSE 78; RESP 16; O2SAT 98
[2024-10-18 22:18] VITALS: RESP 18
[2024-10-19 09:21] VITALS: BP 103/59; PULSE 85; RESP 16; TEMP 96.9; O2SAT 98
[2024-10-19] MEDS: ZOLPIDEM TARTRATE 10 MG TABLET PO PRN (21:17)
[2024-10-19 21:59] VITALS: BP 123/64; PULSE 109; RESP 18; TEMP 97.7; O2SAT 97
[2024-10-20 10:14] VITALS: BP 125/79; PULSE 97; RESP 18; TEMP 97.5; O2SAT 99
[2024-10-20 20:25] VITALS: BP 120/57; PULSE 84; RESP 18; TEMP 98.1; O2SAT 99
[2024-10-21 09:47] VITALS: BP 137/75; PULSE 87; RESP 18; TEMP 98.4; O2SAT 97
[2024-10-21 20:00] VITALS: BP 109/65; PULSE 88; RESP 18; TEMP 97.2; O2SAT 99
[2024-10-21 20:38] VITALS: BP 109/65; PULSE 88; RESP 18; TEMP 97.2; O2SAT 99
[2024-10-22 09:52] VITALS: BP 117/67; PULSE 79; RESP 17; TEMP 98.4; O2SAT 98
[2024-10-22 20:35] VITALS: BP 106/65; PULSE 85; RESP 18; TEMP 98; O2SAT 99
[2024-10-22 21:38] VITALS: RESP 18
[2024-10-23 09:46] VITALS: BP 118/70; PULSE 81; RESP 18; TEMP 98.1; O2SAT 97
[2024-10-23] MEDS ORDERED: LEVO100 PO (19:28)
[2024-10-23] MEDS ORDERED: MIRT-149 PO (19:28)
[2024-10-23] MEDS ORDERED: AMLO-257 PO (19:28)
[2024-10-23] MEDS ORDERED: SIMV-43 PO (19:28)
[2024-10-23] MEDS ORDERED: METO-391 PO (19:28)
[2024-10-23] MEDS ORDERED: DIVA-153 PO (19:28)
[2024-10-23 20:45] VITALS: BP 99/65; PULSE 98; RESP 18; TEMP 98.2; O2SAT 100
[2024-10-23 21:49] VITALS: RESP 18
[2024-10-24 08:33] VITALS: BP 128/75; PULSE 75; RESP 18; TEMP 97.9; O2SAT 96
== END 2024-10-24 09:20 | disposition home or self-care (01) | DRG 753 ==
LOC: EMS 15:39 → 3EI 21:08
PROVIDERS: ADMIT Psychiatry & Neurology Child & Adolescent Psychiatry; ATTEND Psychiatry & Neurology Child & Adolescent Psychiatry
PROC: GZ58ZZZ Individual Psychotherapy, Cognitive-Behavioral (ICD-10-PCS; 2024-10-16)
PROC: GZ56ZZZ Individual Psychotherapy, Supportive (ICD-10-PCS; 2024-10-16)
PROC: GZHZZZZ Group Psychotherapy (ICD-10-PCS; principal; 2024-10-18)
DX: F31.4 Bipolar disorder, current episode depressed, severe, without psychotic features (principal); L89.159 Pressure ulcer of sacral region, unspecified stage; R45.851 Suicidal ideations; T42.6X2A Poisoning by other antiepileptic and sedative-hypnotic drugs, intentional self-harm, initial encounter; E03.9 Hypothyroidism, unspecified; E78.00 Pure hypercholesterolemia, unspecified; G47.33 Obstructive sleep apnea (adult) (pediatric); I10 Essential (primary) hypertension; G47.00 Insomnia, unspecified; K21.9 Gastro-esophageal reflux disease without esophagitis; Z20.822 Contact with and (suspected) exposure to COVID-19; Z79.899 Other long term (current) drug therapy; Z88.8 Allergy status to other drugs, medicaments and biological substances
CPT/HCPCS: 80048; 80053; 80061; 80076; 80164; 80307; 81003; 83036; 84443; 85025; 93005; 99285; G0480; G0481